=== PATIENT | female | born 2000 | race Caucasian/White ===

== ENCOUNTER 2023-02-09 13:58 | Emergency (ER) | payer OTHER, SELFPAY ==
[2023-02-09 14:05] VITALS: BP 190/101; PULSE 98; RESP 20; TEMP 35.6; O2SAT 94
--- NOTE | 2023-02-09 14:12 | ED.URI ---
HPI - URI/Sore Throat General Chief Complaint: Upper Respiratory Infection Stated Complaint: cough/chest rattling Source: patient, RN notes reviewed and old records reviewed Mode of arrival: ambulatory Limitations: no limitations History of Present Illness HPI Narrative: 22-year-old female presents to [facility] with complaints of coughing congestion for 2 weeks. Patient taking oqau-dmp-qdqhtss medications with no relief. Patient denies dizziness, chest pain, weakness, shortness of breath. MD elicited complaint: cough and nasal congestion Onset (ago): week(s) ( 2) Related Data Allergies Allergy/AdvReac Type Severity Reaction Status Date / Time No Known Allergies Allergy Verified 02/09/23 14:16 Review of Systems Review of Systems: All systems reviewed & are unremarkable except as noted in HPI and below Constitutional: Constitutional: Reports no additional constitutional complaints Eyes: Eyes: Reports no additional eye complaints ENT: Reports as per HPI, Reports nasal congestion and Reports nasal discharge Cardiovascular: Cardiovascular: Reports no additional cardiovascular complaints Respiratory: Respiratory: Reports as per HPI, Reports chest congestion, Reports cough and Reports pain with cough Neurologic: Reports system reviewed and no additional complaints, except as documented PMFSH Comments At the time of my signature, I reviewed and agree with the nursing past medical, surgical, social, and family history. There is no relevant family history pertinent to the patient complaint. Exam Const: General: cooperative, healthy appearing, no acute distress and well nourished Nutritional Appearance: well nourished Orientation/consciousness: patient oriented x3 Limitations: no limitations HENMT: Head: normal to inspection and normocephalic Ears: external ears normal, TM's normal bilaterally, mastoids normal and Abnormal EAC present Face/Nose/Sinus: normal facial exam Face and sinus: normal facial exam Mouth: Yes Normal oral and palatal mucosa present, Yes oropharynx normal and Yes moist mucous membranes Throat: posterior oropharynx normal, tonsils normal, uvula midline and no uvular edema Eyes: General: appearance normal, both eyes and all related structures Sclera: sclerae normal Pupils: Equal, round and reactive pupils present Resp: Effort & Inspection: normal respiratory effort, able to speak in complete sentences, no audible wheezes, Actively coughing, no respiratory distress and no retractions Auscultation: clear to auscultation bilaterally, no crackles, no rales, no rhonchi and no wheezes Cardio: Rate: regular rate Rhythm: regular rhythm Skin: General skin exam: normal color and no rashes or lesions noted Neuro: General: patient oriented x3 Cranial nerves: Yes Equal, round and reactive pupils present Psych: Appearance: grossly normal Course Course Emergency Course: Some parts of this dictation were generated by voice recognition software and may contain typographical and/or grammatical inaccuracies. Level of Care: Express Care Visit Vital Signs Vital signs: Vital Signs Temperature 96.0 F L 02/09/23 14:05 Pulse Rate 98 02/09/23 14:05 Respiratory Rate 20 02/09/23 14:05 Blood Pressure 190/101 H 02/09/23 14:05 Pulse Oximetry 94 02/09/23 14:05 Oxygen Delivery Room Air 02/09/23 14:05 Temperature 96.0 F L 02/09/23 14:05 Pulse Rate 98 02/09/23 14:05 Respiratory Rate 20 02/09/23 14:05 Blood Pressure 190/101 H 02/09/23 14:05 Pulse Oximetry 94 02/09/23 14:05 Oxygen Delivery Room Air 02/09/23 14:05 Reviewed MDM - URI/Sore Throat MDM Narrative Medical decision making narrative: patient with cough and congestion for 2 weeks, patient taking fvsv-ovj-nhgowur medications with no relief. Will treat patient for bacterial bronchitis. The patient's manual blood pressure was 168/92. Discussed with patient importance of monitoring her blood pressure and obtainin
== END 2023-02-09 14:35 | disposition home or self-care (01) ==
PROVIDERS: Emergency Provider Registered Nurse
DX: J20.9 Acute bronchitis, unspecified (principal)
CPT/HCPCS: 99203; G0463

== ENCOUNTER 2024-05-01 13:52 | Emergency (ER) | payer OTHER, SELFPAY ==
--- OUTSIDE RECORDS SUMMARY | 2024-05-01 13:55 | XMS_ITS | Clinical Summary ---
Author Organization [facility] Address [address] [place] [address] Care Team Providers Care Barrel Polisher Inside Name Role Phone Cheyenne Middleton MD Primary Care Provider Source Comments [facility] [employer],non-owned Affiliates and Associated Physician Practices is amultiple site organization consisting of ambulatory clinics and hospital sitesin [place], [place], [place] and [place]. This disclosure is being madepursuant to the Care Everywhere program and may not contain all information available regarding this patient. Last updated 17.[facility] [employer] Allergies No known active allergies Medications * Be aware that medications may not be up to date on this document. Alwaysverify current medications with the patient. Medication Sig Dispensed Refills Start Date End Date Status Vitamin D, Cholecalciferol, 1000 UNITS CAPS Take 2,000 Units by mouth Active fish oil/omega-3 fatty acids (PROMEGA;CARDI-OMEGA 3) 1000 MG capsule Take 1,000 mg by mouth once Active sulfamethoxazole-trime thoprim (BACTRIM DS; SEPTRA DS) 800-160 MG tablet Take 1 tablet by mouth 2 times daily Active Active Problems Problem Noted Date Diagnosed Date Obesity 09/18/2010 Asthma 10/17/2009 Allergic rhinitis 10/17/2009 Family History Relation Name Status Comments Father Alive Mother Alive Social History Tobacco Use Types Packs/Day Years Used Date Smoking Tobacco: Never Sex and Gender Information Value Date Recorded Sex Assigned at Not on file Gender Identity Not on file Sexual Orientation Not on file Last Filed Vital Signs Vital Sign Reading Time Taken Comments Blood Pressure 138/72 08/06/2011 11:25 AM CDT Pulse 107 08/06/2011 11:25 AM CDT Temperature 36.8 C (98.3 F) 08/06/2011 11:25 AM CDT Respiratory Rate 20 08/06/2011 11:2 5 AM CDT Oxygen Saturation 98% 08/06/2011 11: 25 AM CDT Inhaled Oxygen Concentration - - Weight 138.9 kg (306 lb 3.5 oz) 018 11:22 AM CDT Height 148.5 cm (4' 10.47 ) 08/06/2011 7:50 AM C DT Body Mass Index - - Plan of Treatment Health Maintenance Due Date Last Done Comments PAP SMEAR 2001 HIV SCREENING 2016 HPV VACCINE (1 - 3-dose series) 2016 CHLAMYDIA/GONORRHEA SCREENING 2017 MENINGOCOCCAL (Group B) VACCINE (1 of 2 - Standard) 2017 HEPATITIS C SCREENING 07/11/2019 DTAP/TDAP/TD VACCINES (1 - Tdap) 2020 HEPATITIS B VACCINE (1 of 3 - 19+ 3-dose series) 2020 PNEUMOCOCCAL VACCINE (1 of 2 - PCV) 2020 COVID-19 VACCINE (1 - 2023-2 5 season) 2023 INFLUENZA VACCINE (#1) 2023 5, 01/02/2014, 12/27/2012 DEPRESSION SCREENING 03/09/2024 ZOSTER VACCINE (1 of 2) 07/16/2051 HIB VACCINE Aged Out No longer eligi ble based on patient's age to complete this topic MENINGOCOCCAL VACCINE Aged Out No graeme kel eligible based on patient's age to complete this topic Care Teams Barrel Polisher Inside Relationship Specialty Start Date End Date Cheyenne Middleton MD [address] [place] [id number] PCP - General 09/20/10
--- OUTSIDE RECORDS SUMMARY | 2024-05-01 13:55 | XMS_ITS | Referral Summary ---
Author Organization [facility] Address [address] [place] [address] Care Team Providers Care Therapist Radiation Name Role Phone Cheyenne Middleton MD Primary Care Provider [phone] Source Comments [facility] [employer],non-owned Affiliates and Associated Physician Practices is amultiple site organization consisting of ambulatory clinics and hospital sitesin [place], [place], [place] and [place]. This disclosure is being madepursuant to the Care Everywhere program and may not contain all information available regarding this patient. Last updated 17.[facility] [employer] Allergies No known active allergies Medications * [...] Obesity 09/18/2010 Asthma 10/17/2009 Allergic rhinitis 10/17/2009 Social History Tobacco Use Types Packs/Day Years [...] Mass Index - - Plan of Treatment Not on file Care Teams Therapist Radiation Relationship Specialty Start Date End Date Cheyenne Middleton MD [address] [place] [id number] PCP - General 09/20/10
--- OUTSIDE RECORDS SUMMARY | 2024-05-01 13:55 | XMS_ITS | Patient Health Summary ---
Author Organization [facility] Address [address] [place] [address] Care Team Providers Care Chronometer Assembler And Adjuster Name Role Phone Cheyenne Middleton MD Primary Care Provider Note from [facility],non-owned Affiliates and Associated Physician Practices is amultiple site organization consisting of ambulatory clinics and hospital sitesin [place], [place], [place] and [place]. This disclosure is being madepursuant to the Care Everywhere program and may not contain all information available regarding this patient. Last updated 17.[facility] [employer] Allergies No known active allergies Medications * Be aware that medications may not be up to date on this document. Alwaysverify current medications with the patient. * Vitamin D, Cholecalciferol, 1000 UNITS CAPS Take 2,000 Units by mouth * fish oil/omega-3 fatty acids (PROMEGA;CARDI-OMEGA 3) 1000 MG capsule Take 1,000 mg by mouth once * sulfamethoxazole-trimethoprim (BACTRIM DS; SEPTRA DS) 800-160 MG tablet Take 1 tablet by mouth 2 times daily Active Problems Problem Noted Date Diagnosed Date [...] cm (4' 10.47 ) 08/06/2011 7:50 AM CDT Body Mass Index - - Procedures * PATHOLOGY/CYTOLOGY REPORT ORDER(Performed 08/07/2011) * CYTOLOGY LIPID INDEX (CG ONLY)(Performed 08/06/2011) * CULTURE FUNGUS OTHER(Performed 08/06/2011) * CULTURE BRONCHOALVEOLAR LAVAGE+GRAM STAIN(Performed 08/06/2011) * CULTURE FUNGUS OTHER(Performed 08/06/2011) * CULTURE AFB+SMEAR(Performed 08/06/2011) * IMAGING/RADIOLOGY/XRAY RESULTS ORDER(Performed 07/10/2011) Results * PATHOLOGY/CYTOLOGY REPORT ORDER (08/07/2011 6:56 PM CDT) Narrative Transcriptions Document, Scanned - 08/07/2011 6:56 PM CDT Scanned Document LAB - PATHOLOGY/CYTO LOGY ORDERABLES * CULTURE AFB+SMEAR (08/06/2011 11:00 AM CDT) Result [facility] Comment: Final ACID FAST SMEAR No acid fast bacilli seen. No growth of Acid Fast Bacillus Miscellaneous samples (specimen) BRONCHIAL BRUSHINGS SPECIMEN / Unknown 08/06/2011 11:00 AM CDT 08/06/2011 11:17 AM CDT Narrative [facility] - 09/16/2011 1:34 PM CDT Performed By [facility];[address];[place] [address] Mary Jo Gee MD LAB - MICROBIOLOGY ORDERABLES [facility] [address] [place] [address] * CYTOLOGY LIPID INDEX PANEL (08/06/2011 11:00 AM CDT) [facility] Clinical History [facility] Comment: Source BAL - Right upper lobe Clinical Information: 11 year-old girl with chronic cough for 2 weeks. Pre-op Diagnosis: Chronic cough Post-op Diagnosis: Surgical Procedure: Bronchoscopy Microscopic Examination [facility] Comment: Differential count: alveolar macrophages 83%, neutrophils 2%, lymphocytes 15%, eosinophils 2%. 1 Farooq-Giemsa, 1 H+E, 3 Oil Red O . Cytospin preparations show a population of cells consisting of abundant alveolar macrophages and bronchial epithelial cells. Evaluation of Oil Red O stained cytospins demonstrate presence of lipid-containing macrophages with a lipid index of 18/400. (SH) Diagnosis [facility] Comment: DIAGNOSIS A. LUNG, BRONCHIOALVEOLAR LAVAGE: - ABUNDANT MACROPHAGES AND BRONCHIAL EPITHELIAL CELLS. - LIPID INDEX FOR BRONCHIOALVEOLAR LAVAGE = 18/400. Comment I have reviewed all diagnostic slides and have personally prepared the gross and/or microscopic portion of this report as part of my pathologic assessment and the final diagnosis. Enhanced Environmental Operator JACK COULTER, [facility] Pathologist Jack Coulter M.D.,Ph.D. [facility] Electronically Signed By JACK COULTRE, [facility] BRONCHIOLOALVEOLAR LAVAGE / Unknown 08/06/2011 11:00 AM CDT 08/06/2011 11:43 AM CDT Mary Jo Gee MD LAB - BODY FLUID OR DERABLES Performing Organization Address City/State/[facility] Co de Phone Number [facility] [address] [place] [address] * CULTURE FUNGUS OTHER (08/06/2011 11:00 AM CDT) Only the most recent of2 resultswithin the time period is included. Result [facility] Comment: Final FUNGUS SMEAR No yeast or hyphae seen No Pneumocystis jirovecii seen No growth of fungus Miscellaneous samples (specimen) BRONCHIOLOALVEOLAR LAVAGE / Unknown 08/06/2011 11:00 AM CDT 08/06/2011 11:16 AM CDT Narrative [facility] - 09/01/2011 2:11 PM CDT Performed By [facility];[address] [place] [address];[place] [address] Mary Jo Gee MD LAB - MICROBIOLOGY ORDERABLES Performing Organization Address [facility] Co de Phone Number [facility] [address] [place] [address] * CULTURE BRONCHOALVEOLAR LAVAGE+GRAM STAIN (08/06/2011 11:00 AM CDT) Result [facility] Comment: Final GRAM STAIN Rare WBC's No organisms seen. CULTURE <1000 CFU/ml Normal oropharyngeal tripp present Fluid specimen (specimen) BRONCHIOLOALVEOLAR LAVAGE / Unknown 08/06/2011 11:00 AM CDT 08/06/2011 11:16 AM CDT Narrative [facility] - 08/08/2011 9:42 AM CDT Performed By [facility];[address] [place] [address];[place] [address] Mary Jo Gee MD LAB - MICROBIOLOGY ORDERABLES Performing Organization Address [facility] Co de Phone Number [facility] [address] [place] [address] * IMAGING/RADIOLOGY/XRAY RESULTS ORDER (07/10/2011 6:53 AM CDT) Anatomical Region Laterality Modality Other Narrative Transcriptions Document, Scanned - 07/10/2011 6:53 AM CDT Scanned Document IMAGING Care Teams Chronometer Assembler And Adjuster Relationship Specialty Start Date End Date Cheyenne Middleton MD [address] [place] [phone] PCP - General 09/20/10
--- OUTSIDE RECORDS SUMMARY | 2024-05-01 13:55 | XMS_ITS | Data Portability ---
[facility] Organization [facility] Address [address] [facility] [place] [place] [address] Care Team Providers Care X Ray Operator Name Role Phone AMEZQUITA, YUMI Primary Care Provider Assessment No assessment recorded. Plan of Treatment Reminders Order Date Submit Date Provider Last Modified By Organization Details Last Modified Time Details Appointments None recorded. Lab Mycobacteri um tuberculosi s stimulated gamma interferon, qual, blood 2023 024 [facility], [address] [facility] [address], [place], [address], 4 20:07:49 HbA1c (hemoglobin A1c), blood 2023 024 AKIN [facility], [address] [facility], [facility] [address], [place], [address], 4 16:11:51 vitamin D, 25-hydroxy, total, serum 2023 024 AKIN [facility], [address] [facility] [address], [place], [address], 4 16:11:52 TSH, ultra-sensi tive, serum 2023 024 AKIN [facility], [address], [place], [address], 4 16:11:50 CMP, serum or plasma 2023 024 AKIN [facility], [address], [place], [address], 03:09:53 lipid panel, serum 2023 [facility], [address], [place], [address], 03:09:51 CBC 2023 [facility], [address], [place], [address], 03:09:54 Referral None recorded. Procedures None recorded. Surgeries None recorded. Imaging None recorded. Medication Orders None recorded. Patient TargetsNo targets recorded. Patient Instructions Encounter Date Encounter Id Patient Instructions Last Modified By Organization Details Last Modified Time 02/22/2024 [id number] influenza (flu) vaccine: care instructions Not available 02/22/2024 10:26:58 tetanus and diphtheria booster: care instructions Not available 02/22/2024 10:26:58 learning about tuberculosis (TB) Not available 02/22/2024 10:26:58 A healthy lifestyle: care instructions Not available 02/22/2024 10:26:58 Increase intake of fresh fruits, and vegetables. Avoid packaged foods and fast foods. Follow a low salt diet, drink at least 8-10 8oz glasses of water a day, exercise most days of the week. Take all medications as prescribed. Keep appointments with PCP and all specialists. Not available 02/22/2024 10:29:22 follow up as needed, yearly to keep established with provider Not available 02/22/2024 10:29:59 Reason for Referral None Reported. Results Created Date Observation Date Name Description Value Unit Range Abnormal Flag Note LastModifiedBy Organization Detail LastModifiedTime 02/22/2002/22/2024 LIPID PANEL cholesterol, total 177 mg/dL 100-19 9 Not Available [facility] [address], [place], [address], 02/23/2024 03:09:51 02/22/20 24 02/22/2024 LIPID PANEL triglyceride s 199 mg/dL 0-149 above high normal Not Available [facility] [address] [place], [address], 02/23/2024 03:09:51 02/22/20 24 02/22/2024 LIPID PANEL HDL cholesterol 43 mg/dL 40-999 Not Available [facility] [address] [place], [address], 02/23/2024 03:09:51 02/22/20 24 02/22/2024 LIPID PANEL VLDL cholesterol aneta 40 mg/dL 5-[address] [facility] [address] [place] [address], [address], 02/23/2024 03:09:51 02/22/20 24 02/22/2024 LIPID PANEL LDL chol calc ([facility]) 123 mg/dL 0-99 above high normal Not Available [facility] [address] [place] [address], [address], 02/23/2024 03:09:51 02/22/20 24 02/22/2024 COMP. METAB OLIC PANEL (14) glucose 106 mg/dL 70-99 above high normal Not Available [facility] [address] [place] [address], [address], 02/23/2024 03:09:53 02/22/20 24 02/22/2024 COMP. METAB OLIC PANEL (14) BUN 10 mg/dL 6-20 Not Available [facility] [address] [place] [address], [address], 02/23/2024 03:09:53 02/22/20 24 02/22/2024 COMP. METAB OLIC PANEL (14) creatinine 0.72 mg/dL 0.76-1 .27 below low normal Not Available [facility] [address] [place] [address], [address], 02/23/2024 03:09:53 02/22/20 24 02/22/2024 COMP. METAB OLIC PANEL (14) eGFR 121 >=60 Units for eGFR value s are mL/mi n/1.7 3 The eGFR Calcu latio n has not been valid ated for patie nts under the age of 18. If test resul ts are displ ayed for a patie nt under the age of 18, disre fara that value . Not Available [facility] [address] [place] [address], [address], 02/23/2024 03:09:53 02/22/20 24 02/22/2024 COMP. METAB OLIC PANEL (14) BUN/creatini ne ratio 14 9-[address] [facility] [address] [place] [address], [address], 02/23/2024 03:09:53 02/22/20 24 02/22/2024 COMP. METAB OLIC PANEL (14) sodium 139 mmol/ L 134-14 4 Not Available [facility] [address] [place] [address], [address], 02/23/2024 03:09:53 02/22/20 24 02/22/2024 COMP. METAB OLIC PANEL (14) potassium 4.4 mmol/ L 3.5-5. 2 Not Available [facility] [address] [place] [address], [address], 02/23/2024 03:09:53 02/22/20 24 02/22/2024 COMP. METAB OLIC PANEL (14) chloride 100 mmol/ L 96-106 Not Available [facility] [address] [place] [address], [address], 02/23/2024 03:09:53 02/22/20 24 02/22/2024 COMP. METAB OLIC PANEL (14) carbon dioxide, total 28 mmol/ L 20-29 Not Available [facility] [address] [place] [address], [address], 02/23/2024 03:09:53 02/22/20 24 02/22/2024 COMP. METAB OLIC PANEL (14) calcium 9.4 mg/dL 8.7-10 .2 Not Available [facility] [address] [place], [address], 02/23/2024 03:09:53 02/22/20 24 02/22/2024 COMP. METAB OLIC PANEL (14) protein, total 7.7 g/dL 6.0-8. 5 Not Available [facility] [address] [place], [address], 02/23/2024 03:09:53 02/22/20 24 02/22/2024 COMP. METAB OLIC PANEL (14) albumin 4.5 g/dL 4.0-5. 0 Not Available [facility] [address] [place], [address], 02/23/2024 03:09:53 02/22/20 24 02/22/2024 COMP. METAB OLIC PANEL (14) globulin, total 3.2 g/dL 1.5-4. 5 Not Available [facility] [address] [place], [address], 02/23/2024 03:09:53 02/22/20 24 02/22/2024 COMP. METAB OLIC PANEL (14) A/G ratio 1.0 1.2-2. 2 below low normal Not Available [facility] [address] [place], [address], 02/23/2024 03:09:53 02/22/20 24 02/22/2024 COMP. METAB OLIC PANEL (14) bilirubin, total 0.3 mg/dL 0.0-1. 2 Not Available [facility] [address] [place], [address], 02/23/2024 03:09:53 02/22/20 24 02/22/2024 COMP. METAB OLIC PANEL (14) alkaline phosphatase 73 IU/L 44-121 Not Available [facility] [address] [place], [address], 02/23/2024 03:09:53 02/22/20 24 02/22/2024 COMP. METAB OLIC PANEL (14) AST (SGOT) 20 IU/L 0-40 Not Available [facility] [address] [place], [address], 02/23/2024 03:09:53 02/22/20 24 02/22/2024 COMP. METAB OLIC PANEL (14) ALT (SGPT) 36 IU/L 0-32 above high normal Not Available [facility] [address] [place], [address], 02/23/2024 03:09:53 02/22/20 24 02/22/2024 CBC, PLATE LET, NO DIFFE RENTI AL WBC 6.6 x10e3 /uL 3.4-10 .8 Not Available [facility] [address] [place], [address], 02/23/2024 03:09:54 02/22/20 24 02/22/2024 CBC, PLATE LET, NO DIFFE RENTI AL RBC 5.32 x10e6 /uL 3.77-5 .28 above high normal Not Available [facility] [address] [place], [address], 02/23/2024 03:09:54 02/22/20 24 02/22/2024 CBC, PLATE LET, NO DIFFE RENTI AL hemoglobin 13.8 g/dL 11.1-1 5.9 Not Available [facility] [address] [place], [address], 02/23/2024 03:09:54 02/22/20 24 02/22/2024 CBC, PLATE LET, NO DIFFE RENTI AL hematocrit 45.7 % 34.0-4 6.6 Not Available [facility] [address] [place], [address], 02/23/2024 03:09:54 02/22/20 24 02/22/2024 CBC, PLATE LET, NO DIFFE RENTI AL MCV 86 fL 79-97 Not Available [facility] [address] [place], [address], 02/23/2024 03:09:54 02/22/20 24 02/22/2024 CBC, PLATE LET, NO DIFFE RENTI AL MCH 25.9 pg 26.6-3 3.0 below low normal Not Available [facility] [address] [place], [address], 02/23/2024 03:09:54 02/22/2002/22/2024 CBC, PLATE LET, NO DIFFE RENTI AL MCHC 30.2 g/dL 31.5-3 5.7 below low normal Not Available [facility] [address] [place], [address], 02/23/2024 03:09:54 02/22/20 24 02/22/2024 CBC, PLATE LET, NO DIFFE RENTI AL RDW 13.3 % 11.5-1 4.5 Not Available [facility] [address] [place], [address], 02/23/2024 03:09:54 02/22/20 24 02/22/2024 CBC, PLATE LET, NO DIFFE RENTI AL platelets 314 x10e3 /uL 150-45 0 Mean Plate let Volum e 10.8 fL 8.9-1 2.7 N Not Available [facility] [address] [place], [address], 02/23/2024 03:09:54 02/22/20 24 02/22/2024 CBC, PLATE LET, NO DIFFE RENTI AL NRBC 0 % 0-0 Not Available [facility] [address] [place], [address], 02/23/2024 03:09:54 02/22/20 24 02/23/2024 TSH RFX ON ABNOR MAL TO FREE T4 TSH 3.240 uIU/m L 0.450- 4.500 Not Available [facility] ([facility]) [address] [facility], [place], [address], 02/23/2024 16:11:50 02/22/20 24 02/23/2024 HEMOG LOBIN A1C hemoglobin A1C 5.8 % 4.8-5. 6 above high normal Predi abete s: 5.7 - 6.4 Diabe yamil: >6.4 Glyce artis contr ol for adult s with diabe yamil: <7.0 Not Available [facility] ([facility]) [address] [facility], [place], [address], 02/23/2024 16:11:51 02/22/20 24 02/23/2024 VITAM IN D, 25-HY DROXY vitamin D, 25-hydroxy 13.4 NG/mL 30.0-1 00.0 below low normal Vitam in D defic iency has been defin ed by the Insti tute of Medic ine and an Endoc rine Socie ty pract ice guide line as a level of serum 25-OH vitam in D less than 20 ng/mL (1,2) . The Endoc rine Socie ty went on to furth er defin e vitam in D insuf ficie ncy as a level betwe en 21 and 29 ng/mL (2). 1. IOM (Inst itute of Medic ine). 2009. Dieta ry refer ence mona es for calci um and D. Belinda owens [place]: The Natio nal [employer] [facility] Press . 2. Deedee raymundo MF, Ion chery [place], Kavitha off-F errar i DAMON, et al. Evalu ation , treat ment, and preve ntion of vitam in D defic iency : an Endoc rine Socie ty clini aneta pract ice guide line. JCEM. 2010; 96(7) :1911 -30. Not Available [facility] ([facility]) [address] [facility], [place], [address], 02/23/2024 16:11:52 02/26/20 24 02/27/2024 QUANT IFERO N-TB GOLD PLUS quantiferon incubation INCUBA TION PERFOR MED. Not Available [facility] ([facility]) [address] [facility], [place], [address], 03/01/2024 20:07:49 02/26/20 24 02/27/2024 QUANT IFERO N-TB GOLD PLUS quantiferon criteria COMMEN T Quant iFERO N-TB Gold Plus is a quali tativ e indir ect test for M tuber culos is infec tion (incl uding disea se) and is inten ded for use in conju nctio n with risk asses sment , radio graph y, and other medic al and diagn ostic evalu ation s. The Quant iFERO N-TB Gold Plus resul t is deter mined by subtr actin g the Nil value from eithe r TB antig en (Ag) value . The Mitog en tube serve s as a contr ol for the test. Not Available [facility] ([facility]) [address] [facility], [place], [address], 03/01/2024 20:07:49 02/26/20 24 03/01/2024 QUANT IFERO N-TB GOLD PLUS quantiferon- TB gold plus NEGATI VE negati ve No respo nse to M tuber culos is antig ens detec eri. Infec tion with M tuber culos is is unlik lilly, but high risk indiv idual s shoul d be consi dered for addit ional testi ng (ATS/ IDSA/ CDC Clini aneta Pract ice Guide lines , 2017) . The refer ence range is an Antig en minus Nil resul t of <0.35 IU/mL . Chemi lumin escen ce immun oassa y metho dolog y Not Available [facility] ([facility]) [address] [facility], [place], [address], 03/01/2024 20:07:49 02/26/20 24 03/01/2024 QUANT IFERO N-TB GOLD PLUS quantiferon TB1 Ag value 0.01 IU/mL Not Available [facility] ([facility]) [address] [place], [address], 03/01/2024 20:07:49 02/26/20 24 03/01/2024 QUANT IFERO N-TB GOLD PLUS quantiferon TB2 Ag value 0.04 IU/mL Not Available [facility] ([facility]) [address] [place], [address], 03/01/2024 20:07:49 02/26/20 24 03/01/2024 QUANT IFERO N-TB GOLD PLUS quantiferon nil value 0.02 IU/mL Not Available [facility] ([facility]) [address] [place], [address], 03/01/2024 20:07:49 02/26/20 24 03/01/2024 QUANT IFERO N-TB GOLD PLUS quantiferon mitogen value >10.00 IU/mL Not Available [facility] ([facility]) [address] [place], [address], 03/01/2024 20:07:49 Result Notes None recorded. Problems Name Problem SNOMED Code Status Onset Date Resolution Date Notes Provider Name and Address Organization Details Recorded Time Morbid obesity [id number] Active 024 Yumi Amezquita APN, [employer] Attn: Accounting ,[address] [place], [address] , [facility] 10:19:44 Problem Notes None recorded. Procedures Surgical History Date Name Laterality Status Provider Name and Address Organization Details Recorded Time 3 bronchoscopy completed LAZARO Vences [place] - [facility] 02/22/2024 10:08:47 Imaging Results None recorded. Procedure Notes None recorded. Medical Equipment None Reported. Allergies Allergen ID Allergen Name Allergen Category Reaction Reaction Severity Criticality Documentation Date Start Date Code Code System Note Provider Name and Address Organization Details Recorded Time 632309 amoxicill in medicatio n hives Not available Not available 02/22/2024 723 RxNorm Not Available Not Available Not Available Medications Name Sig Start Date Stop Date Status Note LastModified by Organization Details LastModified Time ergocalciferol (vitamin D2) 1,250 mcg (50,000 unit) capsule Take 1 capsule every week by oral route. active Not Available Not Available No t Available Vitals Date Recorded Body height Body mass index (BMI) Body weight Oxygen saturation Oxygen saturation in Arterial blood by Pulse oximetry Respiratory rate Body temperature Heart rate Systolic blood pressure Diastolic blood pressure Provider Name and Address Organization Details Last Updated DateTime 4 167.64 cm 60.7 kg/m2 354109. 73 g 98 % 98 % 16 /min 98.4 [degF] 88 /min 140 mm[Hg] 94 mm[Hg] LAZARO Vences [facility] 10:13:10 Social History Question Answer Notes LastModified by Organizat ion Details LastModified Time Tobacco Smoking Status Never Smoker LAZARO Vences null, [place] [facility] [place] 02/22/2024 10:07:04 What Is Your Level Of Alcohol Consumption? Occasional Information not available 02/22/2024 Are You Blind Or Do You Have Difficulty Seeing? No Glasses Information not available 02/22/2024 What Is Your Level Of Caffeine Consumption? Moderate Tea Information not available 02/22/2024 In The 14 Days Before Symptom Onset, Have You Had Close Contact With A Laboratory-confir med COVID-19 While That Case Was Ill? No Information not available 02/22/2024 In The 14 Days Before Symptom Onset, Have You Had Close Contact With A Person Who Is Under Investigation For COVID-19 While That Person Was Ill? No Information not available 02/22/2024 Have You Been To An Area Known To Be High Risk For COVID-19? No Information not available 02/22/2024 Are You Currently Employed? Yes Information not available 02/22/2024 Are You Deaf Or Do You Have Serious Difficulty Hearing? No Information not available 02/22/2024 What Type Of Diet Are You Following? REGULAR Information not available 02/22/2024 What Is Your Occupation? [employer] Information not available 02/22/2024 Are There Any Guns Present In Your Home? No Information not available 02/22/2024 What Was The Date Of Your Most Recent Tobacco Screening? 02/22/2024 Information not available 02/22/2024 How Many Children Do You Have? 0 Information not available 02/22/2024 What Is Your Relationship Status? Single Information not available 02/22/2024 Do You Use Your Seat Belt Or Car Seat Routinely? Yes Information not available 02/22/2024 Do You Have Smoke And Carbon Monoxide Detectors In Your Home? Yes Information not available 02/22/2024 Are You Passively Exposed To Smoke? No Information no t available 02/22/2024 Do You Feel Stressed (tense, Restless, Nervous, Or Anxious, Or Unable To Sleep At Night)? [id number] Information not available 02/22/2024 Do You Use Any Illicit Or Recreational Drugs? No Information not available 02/22/2024 Do You Use Sunscreen Routinely? Yes Information not available 02/22/2024 Has Tobacco Cessation Counseling Been Provided? Yes Information not available 02/22/2024 On What Date Was Tobacco Cessation Counseling Provided? 02/22/2024 Information not available 02/22/2024 Do You Or Have You Ever Used Any Other Forms Of Tobacco Or Nicotine? No Information not available 02/22/2024 Sex: Female Functional Status Question Answer Note LastModified by Organizat ion Details LastModified Time Are you able to care for yourself? Yes Information not available 02/22/2024 What is your exercise level? Occasional Information not available 02/22/2024 Mental Status None recorded. Family History Relationship Description Onset Age of this Age Resolved Age Notes LastModified by Organization Details LastModified Time Father Diabetes mellitus [email or web address] Not available 02/06 10:05:50 Father Disorder of thyroid gland jschulterma Not available 02/06 10:06:03 Father Hypertensive disorder jschulterma Not available 02/06 10:06:24 Mother Diabetes mellitus jschulterma Not available 02/06 10:05:50 Mother Disorder of thyroid gland jschulterma Not available 02/06 10:06:03 Mother Hypertensive disorder jschulterma Not available 02/06 10:06:24 Maternal Grandfather Diabetes mellitus jschulterma Not available 02/06 10:05:50 Maternal Grandmother Diabetes mellitus jschulterma Not available 02/06 10:05:50 Paternal Grandfather Diabetes mellitus jschulterma Not available 02/06 10:05:50 Paternal Grandmother Diabetes mellitus jschulterma Not available 02/06 10:05:50 Paternal Grandmother Chronic obstructive pulmonary disease jschulterma Not available 02/06 10:06:13 Medical History Condition Response Coronary Artery Disease N Atrial Fibrillation N High Blood Pressure N Thyroid Problems N Kidney or Bladder Problems N GI Problems N Depression N COPD N Blood Clots N Have you had a mammogram in the last yea r? N Eating Disorder N Skin Problems N Anemia N Heart Attack (ME) N Anxiety Disorder N Diabetes N Muscle, Joint, or Bone Problems N Arthritis N Seizures/Epilepsy N Have you had a colonoscopy in the last 1 0 years? N Acid Reflux (GERD) N Cancer N Stroke N Asthma Y Allergies N Have you had a PSA blood test in the las t year? N Substance Abuse N High Cholesterol N Hepatitis N Liver Disease N Schizophrenia N Headaches N Heart Failure N Osteoporosis N Gynecological History Statement/Question Response Flow Moderate Date of LMP 01/08/2024 Menses Monthly N Age at Menarche 12 Current Control Method None LMP Approximate Obstetrics History GPAL:G 0 P 0 0 0 0 Immunizations Vaccine Type Date Status Note Provider Nam e and Address Organization Details Recorded Time Hib, unspecified formulation 4 completed Yumi Amezquita APN, FNP-C Attn: Accounting,[address] [place], [address], [facility] 02/22/2024 10:15:24 Hib, unspecified formulation 7 completed Yumi Amezquita, [employer] OPER[employer], [employer] Attn: Accounting,[address] [facility], [place], [place], [address] [place] [address], [place] [facility] 02/22/2024 10:15:24 Hib-Hep B 2 completed Yumi Amezquita, WASTE MACHINE OPERATOR, [employer] Attn: Accounting,[address] [facility], [place], [place], [address] [place] [address], [facility] 02/22/2024 10:15:24 Hib-Hep B 3 completed Yumi Amezquita, WASTE MACHINE OPERATOR, [employer] Attn: Accounting,[address] [facility], [place], [place], [address] [place] [address], [facility] 02/22/2024 10:15:24 Hib-Hep B 2 completed Yumi Amezquita, WASTE MACHINE OPERATOR, [employer] Attn: Accounting,[address] [facility], [place], [place], [address] [place] [address], [facility] 02/22/2024 10:15:24 IPV 6 completed Yumi Amezquita, WASTE MACHINE OPERATOR, [employer] Attn: Accounting,[address] [facility], [place], [place], [address] [place] [address], [facility] 02/22/2024 10:15:24 IPV 2 completed Yumi Amezquita, WASTE MACHINE OPERATOR, [employer] Attn: Accounting,[address] [facility], [place], [place], [address] [place] [address], [facility] 02/22/2024 10:15:24 IPV 3 completed Yumi Amezquita, WASTE MACHINE OPERATOR, [employer] Attn: Accounting,[address] [facility], [place], [place], [address] [place] [address], [facility] 02/22/2024 10:15:24 IPV 2 completed Yumi Amezquita, WASTE MACHINE OPERATOR, [employer] Attn: Accounting,[address] [facility], [place], [place], [address] [place] [address], [facility] 02/22/2024 10:15:24 MMR 3 completed Yumi Amezquita, WASTE MACHINE OPERATOR, [employer] Attn: Accounting,[address] [facility], [place], [address] [place] [address], [place] [facility] 02/22/2024 10:15:24 MMR 6 completed Yumi Amezquita, WASTE MACHINE OPERATOR, [employer] Attn: Accounting,[address] [facility], [place], [address] [place] [address], [place] [facility] 02/22/2024 10:15:24 COVID-19, mRNA, LNP-S, PF, 30 mcg/0.3 mL dose 1 completed Yumi Amezquita, WASTE MACHINE OPERATOR, [employer] Attn: Accounting,[address] [facility], [place], [place], [address] [place] [address], [place] [facility] 02/22/2024 10:15:24 COVID-19, mRNA, LNP-S, PF, 30 mcg/0.3 mL dose 1 completed Yumi Maezquita, WASTE MACHINE OPERATOR, [employer] Attn: Accounting,[address] [facility], [place], [place], [address] [place] [address], [place] [facility] 02/22/2024 10:15:24 pneumococcal conjugate PCV 7 2 completed Yumi Amezquita, WASTE MACHINE OPERATOR, [employer] Attn: Accounting,[address] [facility], [place], [place], [address] [place] [address], [place] [facility] 02/22/2024 10:15:24 pneumococcal conjugate PCV 7 3 completed Yumi Amezquita, WASTE MACHINE OPERATOR, [employer] Attn: Accounting,[address] [facility], [place], [place], [address] [place] [address], [place] [facility] 02/22/2024 10:15:24 pneumococcal conjugate PCV 7 2 completed Yumi Amezquita, WASTE MACHINE OPERATOR, [employer] Attn: Accounting,[address] [facility], [place], [place], [address] [place] [address], [place] [facility] 02/22/2024 10:15:24 pneumococcal conjugate PCV 7 2 completed Yumi Amezquita, WASTE MACHINE OPERATOR, [employer] Attn: Accounting,[address] [facility], [place], [address] [place] [address], [place] [facility] 02/22/2024 10:15:24 pneumococcal polysaccharide PPV23 7 completed Yumi Bia, WASTE MACHINE OPERATOR, [employer] Attn: Accounting,[address] [facility], [place], [place], [address] [place] [address], [facility] 02/22/2024 10:15:24 influenza, unspecified formulation 7 completed Yumi Amezquita, WASTE MACHINE OPERATOR, [employer] Attn: Accounting,[address] [facility], [place], [address] [place] [address], [facility] 02/22/2024 10:15:24 influenza, unspecified formulation 8 completed Yumi Amezquita, WASTE MACHINE OPERATOR, [employer] Attn: Accounting,[address] [facility], [place], [place], [address] [place] [address], [facility] 02/22/2024 10:15:24 Tdap 3 completed Yumi Amezquita, WASTE MACHINE OPERATOR, [employer] Attn: Accounting,[address] [facility], [place], [place], [address] [place] [address], [facility] 02/22/2024 10:15:24 varicella 3 completed Yumi Amezquita, WASTE MACHINE OPERATOR, [employer] INSULATION-C Attn: Accounting,20 [address] [facility], [place], [place], [address] [place] [address], [facility] 02/22/2024 10:15:24 varicella 8 completed Yumi Amezquita, WASTE MACHINE OPERATOR, [employer] Attn: Accounting,20 [address] [facility], [place], [place], [address] [place] [address], [facility] 02/22/2024 10:15:24 Hep B, unspecified formulation 2 completed Yumi Bia, WASTE MACHINE OPERATOR, [employer] Attn: Accounting,20 [address] [facility], [place], [place], [address] [place] [address], [facility] 02/22/2024 10:15:24 Influenza, split virus, trivalent, preservative 1 completed Yumi Amezquita, WASTE MACHINE OPERATOR, [employer] Attn: Accounting,20 [address] [facility], [place], [place], [address] [place] [address], [facility] 02/22/2024 10:15:24 Influenza, split virus, trivalent, PF 2 completed Yumi Amezquita, WASTE MACHINE OPERATOR, [employer] Attn: Accounting,20 [address] [facility], [place], [place], [address] [place] [address], [facility] 02/22/2024 10:15:24 influenza, split (incl. purified surface antigen) 0 completed Yumi Amezquita, WASTE MACHINE OPERATOR, [employer] Attn: Accounting,20 [address] [facility], [place], [place], [address] [place] [address], [facility] 02/22/2024 10:15:24 influenza, split (incl. purified surface antigen) 9 completed Yumi Amezquita, WASTE MACHINE OPERATOR, [employer] Attn: Accounting,20 [address] [facility], [place], [address] [place] [address], [facility] 02/22/2024 10:15:24 Hep A, pediatric, unspecified formulation 8 completed Yumi Amezquita, WASTE MACHINE OPERATOR, [employer] Attn: Accounting,20 [address] [facility], [place], [address] [place] [address], [facility] 02/22/2024 10:15:24 meningococcal MCV4P 9 completed Yumi Amezquita, WASTE MACHINE OPERATOR, [employer] Attn: Accounting,20 [address] [facility], [place], [address] [place] [address], [facility] 02/22/2024 10:15:24 meningococcal MCV4P 3 completed Yumi Amezquita, WASTE MACHINE OPERATOR, [employer] Attn: Accounting,20 [address] [facility], [place], [address] [place] [address], [facility] 02/22/2024 10:15:24 DTaP 6 completed Yumi Amezquita, WASTE MACHINE OPERATOR, [employer] Attn: Accounting,20 [address] [facility], [place], [place], [address] [place] [address], [facility] 02/22/2024 10:15:24 DTaP 2 completed Yumi Amezquita, WASTE MACHINE OPERATOR, [employer] Attn: Accounting,20 [address] [facility] [place], [place], [address] [place] [address], [facility] 02/22/2024 10:15:24 DTaP 3 completed Yumi Amezquita, WASTE MACHINE OPERATOR, [employer] Attn: Accounting,20 [address] [facility], [place], [address] [place] [address], [facility] 02/22/2024 10:15:24 DTaP 2 completed Yumi Amezquita, WASTE MACHINE OPERATOR, [employer]C Attn: Accounting,20 [address] [facility], [place], [place], [address] [place] [address], [facility] 02/22/2024 10:15:24 DTaP 2 completed Yumi Amezquita, WASTE MACHINE OPERATOR, [employer]C Attn: Accounting,20 [address] [facility], [place], [address] [place] [address], [facility] 02/22/2024 10:15:24 Influenza, split virus, quadrivalent, PF 5 completed Yumi Amezquita, WASTE MACHINE OPERATOR, [employer]-C Attn: Accounting,20 [address] [facility], [place], [address] [place] [address], [facility] 02/22/2024 10:15:24 Influenza, split virus, quadrivalent, PF 3 completed Yumi Amezquita, WASTE MACHINE OPERATOR, [employer] Attn: Accounting,20 [address] [facility], [place], [place], [address] [place] [address], [facility] 02/22/2024 10:15:24 Influenza, split virus, quadrivalent, PF 4 completed Yumi Amezquita, WASTE MACHINE OPERATOR, [employer]-C Attn: Accounting,20 [address] [facility], [place], [place], [address] [place] [address], [facility] 02/22/2024 10:15:24 Hep A, unspecified formulation 9 completed Yumi Amezquita, WASTE MACHINE OPERATOR, [employer] INS[employer]-C Attn: Accounting,20 [address] [facility], [place], [place], [address] [place] [address], [facility] 02/22/2024 10:15:24 Influenza, split virus, trivalent, preservative 4 completed Angelica [place]AR[place], [place] - [facility] 02/22/2024 10:41:21 Tdap 4 completed LAZARO V[place], [place] [facility] 02/22/2024 10:41:22 Past Encounters Encounter ID Performer Location Encounter Start Date Encounter Closed Date Diagnosis/Indication Diagnosis SNOMED-CT Code Diagnosis ICD10 Code Diagnosis Note [id number] Yumi Amezquita APN, FNP-C [facility] [address] [place] [address] 02/22/2024 09:51:28 02/24/2024 16:36:02 Adult health examination 206799043 Z00.01 Encouraged routine PROGRAM AIDE GROUP WORK, vision, dental exams, well balanced diet. Administra tion of influenza vaccine 77570423 Z23 Tuberculos is screening 259567840 Z11.7 needed for day care worker form Morbid obesity 742298107 E66.01 weight loss advised Elevated blood-pressure reading without diagnosis of hypertension 846694623 R03.0 BP in pre-hypert ensive range, dwp risk, reducing salt and increasing exercise Administra tion of diphtheria, pertussis, and tetanus vaccine 669637913 Z23 History of asthma 796232 007 Z87.09 has not had issues since she was a child, declined rx for inhaler prn Health Concerns Section Related Observation LastModified by Organization Detai ls LastModified Time None Recorded Concern Status LastModified by Organization Details LastModified Time None Recorded Advance Directives Directive None Recorded Payers Encounter Date Sequence Insurance Name Policy Number Policy Caldwell Covered Member ID Caldwell Member ID Guarantor Name 02/22/2024 1 [facility] ON OR AFTER 09/06/20 (MEDICAID REPLACEMENT - HMO) Merlyn Cornejo [id number] Merlyn Cornejo Notes Date Note Type Note Provider Name and Address Organization Details Recorded Time 02/22/2024 text/html last dr was peds in 2019Needs work physical and tb test Yumi Amezquita APN, FNP-C Attn: Accounting [facility], [place], [address], [place] [facility] 02/22/2024 10:31:33 OBGyn Episode No OBEpisode recorded.
--- OUTSIDE RECORDS SUMMARY | 2024-05-01 13:55 | XMS_ITS | Clinical Summary ---
Author Organization [facility] Address [address] [facility], [address] [address] Phone Care Team Providers Care Peoplesoft Fscm Developer Name Role Phone Cheyenne Middleton MD Primary Care Provider [phone] Allergies No known active allergies Medications Vitamin D, Cholecalciferol, 1000 units Capsule Take 2,000 Units by mouth. Active [place] 3 1000 MG Capsule Take 1,000 mg by mouth. Active Social History Tobacco Use Types Packs/Day Years Used Date Smoking Tobacco: Never Smokeless Tobacco: Never Alcohol Use Standard Drinks/Week Comments Never 0 (1 standard drink = 0.6 oz pur e alcohol) AUDIT-C Answer Date Recorded Frequency of Alcohol Consumption Never 10/11/2018 Average Number of Drinks Not on file 019 Frequency of Binge Drinking Not on file 07/2018 Comments No Sex and Gender Information Value Date Recorded Sex Assigned at Not on file Legal Sex Female 7:29 PM CDT Gender Identity Not on file Sexual Orientation Not on file Last Filed Vital Signs Vital Sign Reading Time Taken Comments Blood Pressure 118/68 10/11/2018 9:58 AM CDT Pulse 82 10/11/2018 9:58 AM CDT Temperature 37.4 C (99.3 F) 10/11/2018 9:58 AM CDT Respiratory Rate 98 10/11/2018 9:58 AM CDT Oxygen Saturation - - Inhaled Oxygen Concentration - - Weight 141.1 kg (311 lb) 10/11/2018 9:58 AM CDT Height 167.6 cm (5' 6 ) 10/11/2018 9:58 AM CDT Body Mass Index 50.2 10/11/2018 9:58 AM CDT Plan of Treatment Health Maintenance Due Date Last Done Comments Hepatitis C Virus (HCV) Screening 2001 Human Papillomavirus (HPV) Immunization (1 - 3-dose series) 2016 Meningococcal B Immunization (1 of 2 - Standard) 2017 Pap Smear 2022 Influenza Immunization (#1) 11/08/202312/07, 01/02/2014, 12/27/2012, Additional history exists SARS-COV-2 Immunization ( season) 2023 12/02/2020, 11/11/2020 Respiratory Syncytial Virus (RSV) Immunization (Adult) (1 - 1-dose 75+ series) 2076 Hepatitis B Immunization Completed 003, 01/17/2002, 2001, Additional history exists Measles Mumps Rubella (MMR) Immunization Discontinued 08/08/2005, 07/19/2002 Polio (IPV) Immunization Discontinued 006, 10/18/2002, 2001, Additional history exists Pneumococcal Immunization Combined Aged Out 02/05/2007, 10/18/2002, 01/17/2002, Additional history exists No longer eligible based on patient's age to complete this topic Varicella Immunization Discontinued 10/11/2007, 2002 Hepatitis A Immunization Discontinued 04/13/2008, 0806/2007 DTaP/Tdap/Td Immunization Discontinued 2012, 08/08/2005, 10/18/2002, Additional history exists TdaP Immunization Completed 08/16/2012 Meningococcal Immunization (ACWY) Completed 08/10/2018, 08/16/2012 Rotavirus Immunization Aged Out No lo nger eligible based on patient's age to complete this topic Insurance [place]ICAID [place] Care Teams Peoplesoft Fscm Developer Relationship Specialty Start Date End Date Cheyenne Middleton MD [address] [place] [address] PCP - General Pediatrics 09/27/18
[2024-05-01 13:58] VITALS: BP 145/68; PULSE 118; RESP 20; TEMP 37; O2SAT 100
--- NOTE | 2024-05-01 14:40 | ED.GENADULT ---
HPI - General Adult General Chief complaint: Upper Respiratory Infection Stated complaint: stiff neck,chest congestion,temp Source: patient and family Mode of arrival: ambulatory Limitations: no limitations History of Present Illness HPI narrative: Patient presents for evaluation of fever. She indicates she had respiratory symptoms that she describes as a common cold that started about three weeks ago. Her mother had influenza and pneumonia about a week prior to that time. Pt took mucinex until about three days ago, at which time she felt as though her respiratory symptoms had improved. Over the past few days she developed a fever. She also reported swelling in the lateral aspect of the left side of her neck. She describes as the area of swelling as a bump . She initially thought that she slept on it wrong. She has full ROM of the neck but movement does reproduce symptoms of pain. She still has a cough. She denies sore throat and nuchal rigidity. She applied a topical analgesic product and applied a heating pad. Mother encouraged her to be evaluated. She denies any redness in the area of concern in her neck. She denies any drainage. Related Data Allergies Allergy/AdvReac Type Severity Reaction Status Date / Time No Known Allergies Allergy Verified 02/09/23 14:16 Review of Systems Review of Systems: CONSTITUTIONAL: Reports fever. Denies chills. EYES: Denies visual changes, redness, or discharge. ENT: Denies rhinorrhea, congestion, sore throat, or otalgia. CARDIOVASCULAR: Denies chest pain, palpitations, or edema. RESPIRATORY: Reports cough. Denies SOB GASTROINTESTINAL: Denies abdominal pain, nausea, vomiting, or diarrhea. GENITOURINARY: Denies dysuria or hematuria. SKIN: Denies rash or itching. MUSCULOSKELETAL: Reports ?bump? in the neck with associated pain NEUROLOGIC: Denies headache, numbness, dizziness, or weakness. PSYCHIATRIC: Denies anxiety or depression. [facility] Past Medical History Medical History No pertinent past medical history Surgical History Surgical History No pertinent past surgical history Family History Family History Mother Pneumonia Social History Social History (Reviewed 05/01/24 @ 14:54 by Joselito Vasquez, [facility], ) Substance use: never Living arrangements: with family Gender identity (if verbalized by the patient): Female Spiritual care concerns: No Exam Narrative: GENERAL: Well-appearing, well-nourished, and in no acute distress. HEAD: Normocephalic, atraumatic. EYES: PERRLA and EOMI. ENT: Nares clear, no rhinorrhea or epistaxis. Mucous membranes moist. Oropharynx without tonsillar hypertrophy exudate or other lesions. Bilateral TMs pearly santiago nonbulging NECK: Supple. There is a slightly raised area of induration to the left lateral aspect of the neck that is about 10x4 cm in size. There is some associated warmth without erythema or drainage CHEST: Occasional cough present on exam. Clear to auscultation. No respiratory distress. No wheezes rales or rhonchi HEART: Regular rate and rhythm. No murmur heard. Normal peripheral pulses. ABDOMEN: Soft, nontender, nondistended, normal active bowel sounds. EXTREMITIES: Normal range of motion. No edema. SKIN: Warm, dry, no rash. NEURO: Negative Brudzinki and Kernig's sign. No focal deficits. Alert and oriented x3. PSYCH: Normal mood and affect. Course Course Emergency Course: This is a 23-year-old female who presented for evaluation fever, cough, and a ?bump? to the left lateral neck. I offered to check CXR but she declined. I offered to send her to the ER for CT imaging of her neck. She declined. Area could be a cellulitis vs lymphadenopathy 2/2 recent sick symptoms. Through shared decision making agreed to trial of abx with plan to call PCP tomorrow for an appt. If she has difficulty breathing or swallowing she should go to the emergency department. She has no meningeal signs on exam today. Doxycycline should provider with coverage for cellulitis as well as some respiratory pathogens. Pt in agreement with plan of care. Level of Care: Express Care Visit Vital Signs Vital signs: Vital Signs Temperature 37.0 C 05/01/24 13:58 Pulse Rate 118 H 05/01/24 13:58 Respiratory Rate 20 05/01/24 13:58 Blood Pressure 145/68 H 05/01/24 13:58 Pulse Oximetry 100 05/01/24 13:58 Oxygen Delivery Room Air 05/01/24 13:58 Temperature 37.0 C 05/01/24 13:58 Pulse Rate 118 H 05/01/24 13:58 Respiratory Rate 05/01/24 13:58 Blood Pressure 145/68 H 05/01/24 13:58 Pulse Oximetry 100 05/01/24 13:58 Oxygen Delivery Room Air 05/01/24 13:58 Medical Decision Making Vital Signs Vital Signs: Vital Signs Temperature 37.0 C 05/01/24 13:58 Pulse Rate 118 H 05/01/24 13:58 Respiratory Rate 05/01/24 13:58 Blood Pressure 145/68 H 05/01/24 13:58 Pulse Oximetry 05/01/24 13:58 Oxygen Delivery Room Air 05/01/24 13:58 Temperature 37.0 C 05/01/24 13:58 Pulse Rate 118 H 05/01/24 13:58 Respiratory Rate 05/01/24 13:58 Blood Pressure 145/68 H 05/01/24 13:58 Pulse Oximetry 05/01/24 13:58 Oxygen Delivery Room Air 05/01/24 13:58 Discharge Plan Discharge Clinical Impression: Myalgia of muscle of neck, Fever Patient Disposition: Home, Self-Care Condition: Stable Instructions: Antibiotic Form, Fever in Adults (ED), Musculoskeletal Pain (ED) Additional Instructions: PLEASE FOLLOW UP WITH YOUR PRIMARY CARE PROVIDER TOMORROW TO DETERMINE WHETHER CT SCAN OF NECK IS WARRANTED IF YOU HAVE WORSENING SYMPTOMS OR DIFFICULTY SWALLOWING/BREATHING, PLEASE GO TO THE EMERGENCY DEPARTMENT Patient Language: Kazakh Prescriptions: New doxycycline hyclate 100 mg tablet 100 mg PO BID Qty: 20 0RF Follow-up/Referrals: Bia,Yumi Leon APN [Primary Care Provider] - Time of Disposition: 14:31
== END 2024-05-01 14:36 | disposition home or self-care (01) ==
PROVIDERS: Emergency Provider Nurse Practitioner; PCP Nurse Practitioner Family
DX: M79.10 Myalgia, unspecified site (principal)
CPT/HCPCS: 99213; G0463

== ENCOUNTER 2024-07-12 13:26 | Emergency (ER) | payer OTHER, SELFPAY ==
--- NOTE | ~2024-07-12 | XR_ITS ---
Clinical Indication: Cough PA and lateral views of the chest: Comparison: None Findings: The lungs are clear, without evidence of focal consolidation or pleural effusion. Cardiome diastinal silhouette is within normal limits. Bones and soft tissues are unremarkable. Impression: Normal chest. Reviewed, dictated and finalized at location . Impression: Normal chest.
--- OUTSIDE RECORDS SUMMARY | 2024-07-12 13:31 | XMS_ITS | Clinical Summary ---
Author Organization [facility] Address [address] [facility], [address] [address] Phone Care Team Providers Care Server Manager Name Role Phone Cheyenne Middleton MD Primary Care Provider + [phone] Allergies No known active allergies Medications Vitamin D, Cholecalciferol, 1000 units Capsule Take 2,000 Units by mouth. Active [place] 3 1000 MG Capsule Take 1,000 mg [...] Immunization (1 of 2 - Standard) 2017 Influenza Immunization (#1) 11/08/202312/07, 01/02/2014, 12/27/2012, Additional history exists SARS-COV-2 Immunization (3 - season) 2023 12/02/2020, 11/11/2020 Respiratory Syncytial Virus [...] 10/11/2007, 2002 Hepatitis A Immunization Discontinued 04/13/2008, 06/2007 DTaP/Tdap/Td Immunization Discontinued 2012, 08/08/2005, 10/18/2002, Additional history exists TdaP Immunization Completed 08/16/2012 Meningococcal Immunization (ACWY) Completed 08/10/2018, 08/16/2012 Rotavirus Immunization Aged Out No lo nger eligible based on patient's age to complete this topic Insurance [place]ID [place] Care Teams Server Manager Relationship Specialty Start Date End Date Cheyenne Middleton MD [address] [place] [address] PCP - General Pediatrics 09/27/18
--- OUTSIDE RECORDS SUMMARY | 2024-07-12 13:31 | XMS_ITS | Data Portability ---
Author Organization [facility] Address [address] [place] [address] Care Team Providers Care Concrete Journeyman Name Role Phone AMEZQUITA, YUMI Primary Care Provider [phone] Assessment No assessment recorded. Plan of Treatment Reminders Order Date Submit Date Provider Last Modified By Organization Details Last Modified Time Details Appointments None recorded. Lab Mycobacteri um tuberculosi s stimulated gamma interferon, qual, blood 2023 024 [facility], [address] [facility] [address], [place], [address], 4 20:07:49 HbA1c (hemoglobin A1c), blood 2023 024 [facility], [address] [facility], [facility], [place], [address], 4 16:11:51 vitamin D, 25-hydroxy, total, serum 2023 024 AKIN [facility], [address] [place] [address] 2, [place], [address], 4 16:11:52 TSH, ultra-sensi tive, serum 2023 024 AKIN [facility], [address], [place], [address], 4 16:11:50 CMP, serum or plasma 2023 024 [facility], [address], [place], [address], 03:09:53 lipid panel, serum 2023 [facility], [address], [place], [address], 03:09:51 CBC 2023 [facility], [address], [place], [address], 03:09:54 Referral None recorded. Procedures None recorded. Surgeries None recorded. Imaging None recorded. Medication Orders None recorded. Patient TargetsNo targets recorded. Patient Instructions Encounter Date Encounter Id Patient Instructions Last Modified By Organization Details Last Modified Time 02/22/2024 [id number] influenza (flu) vaccine: care instructions Not available [...] total 177 mg/dL 100-19 9 Not Available [facility] Department [address], [place], [address], 02/23/2024 03:09:51 02/22/20 24 02/22/2024 LIPID PANEL triglyceride s 199 mg/dL 0-149 above high normal Not Available [facility] Department [address] [place], [address], 02/23/2024 03:09:51 02/22/20 24 02/22/2024 LIPID PANEL HDL cholesterol 43 mg/dL 40-999 Not Available [facility] Department [address] [place], [address], 02/23/2024 03:09:51 02/22/20 24 02/22/2024 LIPID PANEL VLDL cholesterol aneta 40 mg/dL 5-40 Not Available [facility] Department [address] [place] [address], [address], 02/23/2024 03:09:51 02/22/20 24 02/22/2024 LIPID PANEL LDL chol calc ([facility]) 123 mg/dL 0-99 above high normal Not Available [facility] Department [address] [place] [address], [address], 02/23/2024 03:09:51 02/22/20 24 02/22/2024 COMP. METAB OLIC PANEL (14) glucose 106 mg/dL 70-99 above high normal Not Available [facility] Department [address] [place] [address], [address], 02/23/2024 03:09:53 02/22/20 24 02/22/2024 COMP. METAB OLIC PANEL (14) BUN 10 mg/dL 6-20 Not Available [facility] Department [address] [place] [address], [address], 02/23/2024 03:09:53 02/22/20 24 02/22/2024 COMP. METAB OLIC PANEL (14) creatinine 0.72 mg/dL 0.76-1 .27 below low normal Not Available [facility] Department [address] [place] [address], [address], 02/23/2024 03:09:53 02/22/20 24 02/22/2024 COMP. METAB OLIC PANEL (14) eGFR 121 >=60 Units for eGFR value s are mL/mi n/1.7 3 The eGFR Calcu latio n has not been valid ated for patie nts under the age of 18. If test resul ts are displ ayed for a patie nt under the age of 18, disre fara that value . Not Available [facility] Department [address] [place] [address], [address], 02/23/2024 03:09:53 02/22/20 24 02/22/2024 COMP. METAB OLIC PANEL (14) BUN/creatini ne ratio 14 9-23 Not Available [facility] Department [address] [place] [address], [address], 02/23/2024 03:09:53 02/22/20 24 02/22/2024 COMP. METAB OLIC PANEL (14) sodium 139 mmol/ L 134-14 4 Not Available [facility] Department [address] [place] [address], [address], 02/23/2024 03:09:53 02/22/20 24 02/22/2024 COMP. METAB OLIC PANEL (14) potassium 4.4 mmol/ L 3.5-5. 2 Not Available [facility] Department [address] [place] [address], [address], 02/23/2024 03:09:53 02/22/20 24 02/22/2024 COMP. METAB OLIC PANEL (14) chloride 100 mmol/ L 96-106 Not Available [facility] Department [address] [place] [address], [address], 02/23/2024 03:09:53 02/22/20 24 02/22/2024 COMP. METAB OLIC PANEL (14) carbon dioxide, total 28 mmol/ L 20-29 Not Available [facility] Department [address] [place] [address], [address], 02/23/2024 03:09:53 02/22/20 24 02/22/2024 COMP. METAB OLIC PANEL (14) calcium 9.4 mg/dL 8.7-10 .2 Not Available [facility] Department [address] [place], [address], 02/23/2024 03:09:53 02/22/20 24 02/22/2024 COMP. METAB OLIC PANEL (14) protein, total 7.7 g/dL 6.0-8. 5 Not Available [facility] Department [address] [place], [address], 02/23/2024 03:09:53 02/22/20 24 02/22/2024 COMP. METAB OLIC PANEL (14) albumin 4.5 g/dL 4.0-5. 0 Not Available [facility] Department [address] [place], [address], 02/23/2024 03:09:53 02/22/20 24 02/22/2024 COMP. METAB OLIC PANEL (14) globulin, total 3.2 g/dL 1.5-4. 5 Not Available [facility] Department [address] [place], [address], 02/23/2024 03:09:53 02/22/20 24 02/22/2024 COMP. METAB OLIC PANEL (14) A/G ratio 1.0 1.2-2. 2 below low normal Not Available [facility] Department [address] [place], [address], 02/23/2024 03:09:53 02/22/20 24 02/22/2024 COMP. METAB OLIC PANEL (14) bilirubin, total 0.3 mg/dL 0.0-1. 2 Not Available [facility] Department [address] [place], [address], 02/23/2024 03:09:53 02/22/20 24 02/22/2024 COMP. METAB OLIC PANEL (14) alkaline phosphatase 73 IU/L 44-121 Not Available [facility] Department [address] [place], [address], 02/23/2024 03:09:53 02/22/20 24 02/22/2024 COMP. METAB OLIC PANEL (14) AST (SGOT) 20 IU/L 0-[address] [facility] Department [address] [place], [address], 02/23/2024 03:09:53 02/22/20 24 02/22/2024 COMP. METAB OLIC PANEL (14) ALT (SGPT) 36 IU/L 0-32 above high normal Not Available [facility] Department [address] [place], [address], 02/23/2024 03:09:53 02/22/20 24 02/22/2024 CBC, PLATE LET, NO DIFFE RENTI AL WBC 6.6 x10e3 /uL 3.4-10 .8 Not Available [facility] Department [address] [place], [address], 02/23/2024 03:09:54 02/22/20 24 02/22/2024 CBC, PLATE LET, NO DIFFE RENTI AL RBC 5.32 x10e6 /uL 3.77-5 .28 above high normal Not Available [facility] Department [address] [place], [address], 02/23/2024 03:09:54 02/22/20 24 02/22/2024 CBC, PLATE LET, NO DIFFE RENTI AL hemoglobin 13.8 g/dL 11.1-1 5.9 Not Available [facility] Department [address] [place], [address], 02/23/2024 03:09:54 02/22/20 24 02/22/2024 CBC, PLATE LET, NO DIFFE RENTI AL hematocrit 45.7 % 34.0-4 6.6 Not Available [facility] Department [address] [place], [address], 02/23/2024 03:09:54 02/22/20 24 02/22/2024 CBC, PLATE LET, NO DIFFE RENTI AL MCV 86 fL 79-97 Not Available [facility] Department [address] [place], [address], 02/23/2024 03:09:54 02/22/20 24 02/22/2024 CBC, PLATE LET, NO DIFFE RENTI AL MCH 25.9 pg 26.6-3 3.0 below low normal Not Available [facility] Department [address] [place], [address], 02/23/2024 03:09:54 02/22/2002/22/2024 CBC, PLATE LET, NO DIFFE RENTI AL MCHC 30.2 g/dL 31.5-3 5.7 below low normal Not Available [facility] Department [address] [place], [address], 02/23/2024 03:09:54 02/22/20 24 02/22/2024 CBC, PLATE LET, NO DIFFE RENTI AL RDW 13.3 % 11.5-1 4.5 Not Available [facility] Department [address] [place], [address], 02/23/2024 03:09:54 02/22/20 24 02/22/2024 CBC, PLATE LET, NO DIFFE RENTI AL platelets 314 x10e3 /uL 150-45 0 Mean Plate let Volum e 10.8 fL 8.9-1 2.7 N Not Available [facility] Department [address] [place], [address], 02/23/2024 03:09:54 02/22/20 24 02/22/2024 CBC, PLATE LET, NO DIFFE RENTI AL NRBC 0 % 0-0 Not Available [facility] Department [address] [place], [address], 02/23/2024 03:09:54 02/22/20 24 02/23/2024 TSH RFX ON ABNOR MAL TO FREE T4 TSH 3.240 uIU/m L 0.450- 4.500 Not Available [facility] ([facility]) [address] [facility], [place], [address], 02/23/2024 16:11:50 02/22/20 24 02/23/2024 HEMOG LOBIN A1C hemoglobin A1C 5.8 % 4.8-5. 6 above high normal Predi abete s: 5.7 - 6.4 Diabe yamil: >6.4 Glyce artis contr ol for adult s with diabe yamil: <7.0 Not Available [facility] ([facility]) [address] [facility], [place], [address], 02/23/2024 16:11:51 02/22/20 24 02/23/2024 VITAM IN [...] 2010; 96(7) :1911 -30. Not Available [facility] ([facility]) [address] [facility], [place], [address], 02/23/2024 16:11:52 02/26/20 24 02/27/2024 QUANT IFERO N-TB GOLD PLUS quantiferon incubation INCUBA TION PERFOR MED. Not Available [facility] ([facility]) [address] [facility], [place], [address], 03/01/2024 20:07:49 02/26/20 24 02/27/2024 QUANT IFERO [...] ol for the test. Not Available [facility] ([facility]) [address] [facility], [place], [address], 03/01/2024 20:07:49 02/26/20 24 03/01/2024 QUANT IFERO [...] y metho dolog y Not Available [facility] ([facility]) [address] [facility], [place], [address], 03/01/2024 20:07:49 02/26/20 24 03/01/2024 QUANT IFERO N-TB GOLD PLUS quantiferon TB1 Ag value 0.01 IU/mL Not Available [facility] ([facility]) [address] [place], [address], 03/01/2024 20:07:49 02/26/20 24 03/01/2024 QUANT IFERO N-TB GOLD PLUS quantiferon TB2 Ag value 0.04 IU/mL Not Available [facility] ([facility]) [address] [place], [address], 03/01/2024 20:07:49 02/26/20 24 03/01/2024 QUANT IFERO N-TB GOLD PLUS quantiferon nil value 0.02 IU/mL Not Available [facility] ([facility]) [address] [place], [address], 03/01/2024 20:07:49 02/26/20 24 03/01/2024 QUANT IFERO N-TB GOLD PLUS quantiferon mitogen value >10.00 IU/mL Not Available [facility] ([facility]) [address] [place], [address], 03/01/2024 20:07:49 Result Notes None recorded. Problems Name Problem SNOMED Code Status Onset Date Resolution Date Notes Provider Name and Address Organization Details Recorded Time Morbid obesity 928363614 Active 024 Yumi Amezquita APN, INDUSTRIAL PHARMACIST-C Attn: Accounting ,[address] [place], [address] , [place] - [place] 4 10:19:44 Problem Notes None recorded. Procedures Surgical [...] Name and Address Organization Details Recorded Time 035424 amoxicill in medicatio n hives Not available Not available 02/22/2024 723 RxNorm LAZARO Vences, [place] - [facility] 4 10:03:52 Medications Name Sig Start Date Stop Date [...] Updated DateTime 4 167.64 cm 60.7 kg/m2 444818. 73 g 98 % 98 % 16 /min 98.4 [degF] 88 /min 140 mm[Hg] 94 mm[Hg] LAZARO Vences [facility] 4 10:13:10 Social History Question Answer Notes LastModified by Organizat ion Details LastModified Time Tobacco Smoking Status Never Smoker ALZARO Vences null, [facility] 02/22/2024 10:07:04 What Is Your Level Of [...] not available 02/22/2024 What Is Your Occupation? [employer] Information not available 02/22/2024 Are There Any [...] Anxious, Or Unable To Sleep At Night)? [id number] Information not available 02/22/2024 Do You Use [...] History Condition Response Coronary Artery Disease N High Blood Pressure N Atrial Fibrillation N Thyroid Problems N Kidney or Bladder Problems N GI Problems N Depression N COPD N Blood Clots N Have you had a mammogram in the last yea r? N Skin Problems N Eating Disorder N Anemia N Heart Attack ([place]) N Anxiety Disorder N Diabetes N Muscle, [...] unspecified formulation 4 completed Yumi Amezquita APN, INDUSTRIAL PHARMACIST-C Attn: Accounting,[address] [place], [address], [facility] - [facility] 02/22/2024 10:15:24 Hib, unspecified formulation 7 completed Yumi Amezquita, CORPORATE RELATIONS DIRECTOR, INDUSTRIAL PHARMACIST-C Attn: Accounting,[address] [facility], [place], [place], [address] [place] [address], [facility] - [facility] 02/22/2024 10:15:24 Hib-Hep B 2 completed Yumi Amezquita, CORPORATE RELATIONS DIRECTOR, INDUSTRIAL PHARMACIST-C Attn: Accounting,[address] [facility], [place], [place], [address] [place] [address], [place] - [facility] 02/22/2024 10:15:24 Hib-Hep B 3 completed Yumi Amezquita, CORPORATE RELATIONS DIRECTOR, INDUSTRIAL PHARMACIST-C Attn: Accounting,[address] [facility], [place], [place], [address] [place] [address], [facility] - [facility] 02/22/2024 10:15:24 Hib-Hep B 2 completed Yumi Amezquita, CORPORATE RELATIONS DIRECTOR, INDUSTRIAL PHARMACIST-C Attn: Accounting,[address] [facility], [place], [place], [address] [place] [address], [facility] - [facility] 02/22/2024 10:15:24 IPV 6 completed Yumi Amezquita, CORPORATE RELATIONS DIRECTOR, INDUSTRIAL PHARMACIST-C Attn: Accounting,[address] [facility], [place], [place], [address] [place] [address], [facility] - [facility] 02/22/2024 10:15:24 IPV 2 completed Yumi Amezquita, CORPORATE RELATIONS DIRECTOR, INDUSTRIAL PHARMACIST-C Attn: Accounting,[address] [facility], [place], [place], [address] [place] [address], [place] - [facility] 02/22/2024 10:15:24 IPV 3 completed Yumi Amezquita, CORPORATE RELATIONS DIRECTOR, INDUSTRIAL PHARMACIST-C Attn: Accounting,[address] [facility], [place], [place], [address] [place] [address], [place] - [facility] 02/22/2024 10:15:24 IPV 2 completed Yumi Amezquita, CORPORATE RELATIONS DIRECTOR, INDUSTRIAL PHARMACIST-C Attn: Accounting,[address] [facility], [place], [place], [address] [place] [address], [place] - [facility] 02/22/2024 10:15:24 MMR 3 completed Yumi Amezquita, CORPORATE RELATIONS DIRECTOR, INDUSTRIAL PHARMACIST-C Attn: Accounting,[address] [facility], [place], [place], [address] [place] [address], [facility] - SI 02/22/2024 10:15:24 MMR 6 completed Yumi Amezquita, CORPORATE RELATIONS DIRECTOR, INDUSTRIAL PHARMACIST-C Attn: Accounting,[address] [facility], [place], [place], [address] [place] [address], [facility] - [facility] 02/22/2024 10:15:24 COVID-19, mRNA, LNP-S, PF, 30 mcg/0.3 mL dose 1 completed Yumi Amezquita, CORPORATE RELATIONS DIRECTOR, INDUSTRIAL PHARMACIST-C Attn: Accounting,[address] [facility], [place], [place], [address] [place] [address], [facility] - [facility] 02/22/2024 10:15:24 COVID-19, mRNA, LNP-S, PF, 30 mcg/0.3 mL dose 1 completed Yumi Amezquita, CORPORATE RELATIONS DIRECTOR, INDUSTRIAL PHARMACIST-C Attn: Accounting,[address] [facility], [place], [place], [address] [place] [address], [facility] - [facility] 02/22/2024 10:15:24 pneumococcal conjugate PCV 7 2 completed Yumi Amezquita, CORPORATE RELATIONS DIRECTOR, INDUSTRIAL PHARMACIST-C Attn: Accounting,[address] [facility], [place], [place], [address] [place] [address] - [place] 02/22/2024 10:15:24 pneumococcal conjugate PCV 7 3 completed Yumi Amezquita, CORPORATE RELATIONS DIRECTOR, INDUSTRIAL PHARMACIST-C Attn: Accounting,[address] [facility], [place], [place], [address] [place] [address], [facility] - [facility] 02/22/2024 10:15:24 pneumococcal conjugate PCV 7 2 completed Yumi Amezquita, CORPORATE RELATIONS DIRECTOR, INDUSTRIAL PHARMACIST-C Attn: Accounting,[address] [facility], [place], [place], [address] [place] [address], [facility] - [facility] 02/22/2024 10:15:24 pneumococcal conjugate PCV 7 2 completed Yumi Amezquita, CORPORATE RELATIONS DIRECTOR, INDUSTRIAL PHARMACIST-C Attn: Accounting,[address] [facility], [place], [place], [address] [place] [address], [facility] 02/22/2024 10:15:24 pneumococcal polysaccharide PPV23 7 completed Yumi Amezquita CORPORATE RELATIONS DIRECTOR, INDUSTRIAL PHARMACIST-C Attn: Accounting,[address] [facility], [place], [place], [address] [place] [address], [facility] 02/22/2024 10:15:24 influenza, unspecified formulation 7 completed Yumi Amezquita CORPORATE RELATIONS DIRECTOR, INDUSTRIAL PHARMACIST-C Attn: Accounting,[address] [facility], [place], [place], [address] [place] [address], [facility] 02/22/2024 10:15:24 influenza, unspecified formulation 8 completed Yumi Amezquita CORPORATE RELATIONS DIRECTOR, INDUSTRIAL PHARMACIST-C Attn: Accounting,[address] [facility], [place], [place], [address] [place] [address], [facility] 02/22/2024 10:15:24 Tdap 3 completed Yumi Amezquita CORPORATE RELATIONS DIRECTOR, INDUSTRIAL PHARMACIST-C Attn: Accounting,[address] [facility], [place], [place], [address] [place] [address], [facility] 02/22/2024 10:15:24 varicella 3 completed Yumi Amezquita CORPORATE RELATIONS DIRECTOR, INDUSTRIAL PHARMACIST-C Attn: Accounting,[address] [facility], [place], [place], [address] [place] [address], [facility] 02/22/2024 10:15:24 varicella 8 completed Yumi Amezquita CORPORATE RELATIONS DIRECTOR, INDUSTRIAL PHARMACIST-C Attn: Accounting,[address] [facility], [place], [place], [address] [place] [address], [facility] 02/22/2024 10:15:24 Hep B, unspecified formulation 2 completed Yumi Amezquita CORPORATE RELATIONS DIRECTOR, INDUSTRIAL PHARMACIST-C Attn: Accounting,[address] [facility], [place], [place], [address] [place] [address], [facility] 02/22/2024 10:15:24 Influenza, split virus, trivalent, preservative 1 completed Yumi Amezquita CORPORATE RELATIONS DIRECTOR, INDUSTRIAL PHARMACIST-C Attn: Accounting,[address] [facility], [place], [place], [address] [place] [address], [facility] - SI 02/22/2024 10:15:24 Influenza, split virus, trivalent, PF 2 completed Yumi Amezquita, CORPORATE RELATIONS DIRECTOR, INDUSTRIAL PHARMACIST-C Attn: Accounting,[address] [facility], [place], [place], [address] [place] [address], [facility] - SI 02/22/2024 10:15:24 influenza, split (incl. purified surface antigen) 0 completed Yumi Amezquita, CORPORATE RELATIONS DIRECTOR, INDUSTRIAL PHARMACIST-C Attn: Accounting,[address] [facility], [place], [place], [address] [place] [address], [facility] - [facility] 02/22/2024 10:15:24 influenza, split (incl. purified surface antigen) 9 completed Yumi Amezquita, CORPORATE RELATIONS DIRECTOR, INDUSTRIAL PHARMACIST-C Attn: Accounting,[address] [facility], [place], [place], [address] [place] [address], [facility] - SI 02/22/2024 10:15:24 Hep A, pediatric, unspecified formulation 8 completed Yumi Amezquita, CORPORATE RELATIONS DIRECTOR, INDUSTRIAL PHARMACIST-C Attn: Accounting,[address] [facility], [place], [address] [place] [address], [facility] - [facility] 02/22/2024 10:15:24 meningococcal MCV4P 9 completed Yumi Amezquita, CORPORATE RELATIONS DIRECTOR, INDUSTRIAL PHARMACIST-C Attn: Accounting,[address] [facility], [place], [address] [place] [address], [facility] - [facility] 02/22/2024 10:15:24 meningococcal MCV4P 3 completed Yumi Amezquita, CORPORATE RELATIONS DIRECTOR, INDUSTRIAL PHARMACIST-C Attn: Accounting,[address] [facility], [place], [address] [place] [address], [place] - [facility] 02/22/2024 10:15:24 DTaP 6 completed Yumi Amezquita, CORPORATE RELATIONS DIRECTOR, INDUSTRIAL PHARMACIST-C Attn: Accounting,[address] [facility], [place], [address] [place] [address], [place] [facility] 02/22/2024 10:15:24 DTaP 2 completed Yumi Amezquita, CORPORATE RELATIONS DIRECTOR, INDUSTRIAL PHARMACIST-C Attn: Accounting,[address] [facility], [place], [address] [place] [address], [facility] 02/22/2024 10:15:24 DTaP 3 completed Yumi Amezquita, CORPORATE RELATIONS DIRECTOR, INDUSTRIAL PHARMACIST-C Attn: Accounting,[address] [facility], [place], [address] [place] [address], [facility] 02/22/2024 10:15:24 DTaP 2 completed Yumi Amezquita, CORPORATE RELATIONS DIRECTOR, INDUSTRIAL PHARMACIST-C Attn: Accounting,[address] [facility], [place], [address] [place] [address], [facility] 02/22/2024 10:15:24 DTaP 2 completed Yumi Amezquita, CORPORATE RELATIONS DIRECTOR, INDUSTRIAL PHARMACIST-C Attn: Accounting,[address] [facility], [place], [address] [place] [address], [facility] 02/22/2024 10:15:24 Influenza, split virus, quadrivalent, PF 5 completed Yumi Amezquita, CORPORATE RELATIONS DIRECTOR, INDUSTRIAL PHARMACIST-C Attn: Accounting,[address] [facility], [place], [address] [place] [address], [facility] 02/22/2024 10:15:24 Influenza, split virus, quadrivalent, PF 3 completed Yumi Amezquita, CORPORATE RELATIONS DIRECTOR, INDUSTRIAL PHARMACIST-C Attn: Accounting,[address] [facility], [place], [address] [place] [address], [facility] 02/22/2024 10:15:24 Influenza, split virus, quadrivalent, PF 4 completed Yumi Amezquita, CORPORATE RELATIONS DIRECTOR, INDUSTRIAL PHARMACIST-C Attn: Accounting,[address] [facility], [place], [address] [place] [address], [facility] 02/22/2024 10:15:24 Hep A, unspecified formulation 9 completed Yumi Amezquita, CORPORATE RELATIONS DIRECTOR, INDUSTRIAL PHARMACIST-C Attn: Accounting,[address] [facility], [place], [place], [address] [place] [address], [facility] 02/22/2024 10:15:24 Influenza, split virus, trivalent, preservative 4 completed Angelica Louis RMA null, [place] - [place] 02/22/2024 10:41:21 Tdap 4 completed Angelica Louis RMAr null, [place] - [facility] 02/22/2024 10:41:22 Past Encounters Encounter ID Performer Location Encounter Start Date Encounter Closed Date Diagnosis/Indication Diagnosis SNOMED-CT Code Diagnosis ICD10 Code Diagnosis Note [id number] MD Red [facility] (Adult Med) [address] [place] [address] 02/22/2024 09:51:28 02/24/2024 16:36:02 Adult health examination 901436548 Z00.01 Encouraged routine POLYGRAPH OPERATOR, vision, dental exams, well balanced diet. Administra tion of influenza vaccine 94513190 Z23 Tuberculos is screening 884705933 Z11.7 needed for day care worker form Morbid obesity 330761355 E66.01 weight loss advised Elevated blood-pressure reading without diagnosis of hypertension 116091393 R03.0 BP in pre-hypert ensive range, dwp risk, reducing salt and increasing exercise Administra tion of diphtheria, pertussis, and tetanus vaccine [id number] Z23 History of asthma 450497 007 Z87.09 has not had issues since [...] [place] Member ID Guarantor Name 02/22/2024 1 [facility] - DOS ON OR AFTER 20 (MEDICAID REPLACEMENT - HMO) Merlyn Cornejo [id number] Merlyn Cornejo Notes Date Note Type Note Provider Name and Address Organization Details Recorded Time 02/22/2024 text/html last dr was peds in 2019Needs work physical and tb test Yumi Amezquita APN, INDUSTRIAL PHARMACIST-C Attn: Accounting,[address] [facility], [place], [address], [facility] 02/22/2024 10:31:33 OBGyn Episode No OBEpisode recorded.
--- OUTSIDE RECORDS SUMMARY | 2024-07-12 13:31 | XMS_ITS | Clinical Summary ---
Author Organization [facility] Address [address] [place] [address] Care Team Providers Care Tin Worker Name Role Phone Cheyenne Middleton MD Primary Care Provider Source Comments [facility],non-owned Affiliates and Associated Physician Practices is amultiple site organization consisting of ambulatory clinics and hospital sitesin [place], [place], [place] and [place]. This disclosure is being madepursuant to the Care Everywhere program and may not contain all information available regarding this patient. Last updated 17.[facility] Allergies No known active allergies Medications * Be aware that medications may not be up to date on this document. Alwaysverify current medications with the patient. Vitamin D, Cholecalciferol, 1000 UNITS CAPS Take 2,000 Units by mouth Active fish oil/omega-3 fatty acids (PROMEGA;CARDI-O REBECCA 3) 1000 MG capsule Take 1,000 mg by mouth once Active sulfamethoxazole -trimethoprim (BACTRIM DS; SEPTRA DS) 800-160 MG tablet Take 1 tablet by mouth 2 times daily Active Active Problems Problem Noted Date Diagnosed Date Obesity 09/18/2010 Asthma 10/17/2009 Allergic rhinitis 10/17/2009 Family History Relation Name Status Comments Father Alive Mother Alive Social History Tobacco Use Types Packs/Day Years Used Date Smoking Tobacco: Never Comments Unknown Sex and Gender Information Value Date Recorded Sex Assigned at Not on file Legal Sex 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 Gender Identity Not on file Sexual Orientation [...] Health Maintenance Due Date Last Done Comments HIV SCREENING 2016 HPV VACCINE (1 - 3-dose series) 2016 CHLAMYDIA/GONORRHEA SCREENING 2017 MENINGOCOCCAL (Group B) VACCINE SHARED DECISION-MAKING (1 of 2 - Standard) 2017 HEPATITIS C SCREENING 07/11/2019 DTAP/TDAP/TD VACCINES (1 - Tdap) 2020 HEPATITIS B VACCINE (1 of 3 - 19+ 3-dose series) 2020 COVID-19 VACCINE (1 - 2023-2 5 season) 2023 DEPRESSION SCREENING 03/09/2024 INFLUENZA VACCINE (Season Ended) 2024 12/25/2014, 01/02/2014, 12/27/2012 ZOSTER VACCINE (1 of 2) 07/16/2051 HIB VACCINE Aged Out No longer eligi ble based on patient's age to complete this topic MENINGOCOCCAL GROUPS A/C/Y/W VACCINE Aged Out No longer eligible b ased on patient's age to complete this topic PNEUMOCOCCAL VACCINE Aged Out No long er eligible based on patient's age to complete this topic Insurance [place]ICAID [place] Member Subscriber Plan / Payer (Ef fective for All Dates) Name:Merlyn Cornejo Relation to Subscriber:Self Name:Merlyn Cornejo Payer ID:Not on file Group ID:Not on file Type:Medicaid [place] Address: [place] [id number] Care Teams Tin Worker Relationship Specialty Start Date End Date Cheyenne Middleton MD [address] [place] [id number] PCP - General 09/20/10
[2024-07-12 13:35] VITALS: BP 141/73; PULSE 112; RESP 18; TEMP 38.2; O2SAT 97
--- NOTE | 2024-07-12 14:20 | ED.GENADULT ---
HPI - General Adult General Chief complaint: Upper Respiratory Infection Stated complaint: Cough/Fever/Vomiting Source: patient Mode of arrival: ambulatory Limitations: no limitations History of Present Illness HPI narrative: Patient presents for evaluation of cough. Symptom onset six weeks ago. She developed a fever yesterday. She now has sinus congestion and clear rhinorrhea. She did have vomiting during coughing episodes. She denies nausea otherwise. 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 She has had multiple episodes of bronchitis in the past and this feels similar. She had asthma in childhood but has not had any episodes in adulthood. Related Data Allergies Allergy/AdvReac Type Severity Reaction Status Date / Time amoxicillin Allergy Intermediate Hives Verified 07/12/24 13:42 Review of Systems Review of Systems: CONSTITUTIONAL: Denies fever, chills, or sweats. EYES: Denies visual changes, redness, or discharge. ENT: Reports sinus congestion and drainage. CARDIOVASCULAR: Denies chest pain, palpitations, or edema. RESPIRATORY: Reports cough. Denies shortness of breath. GASTROINTESTINAL: Reports episodes of vomiting during coughing episodes. Denies nausea otherwise. Denies abdominal pain or diarrhea. GENITOURINARY: Denies dysuria or hematuria. SKIN: Denies rash or itching. MUSCULOSKELETAL: Denies back pain, joint pain, or myalgia. NEUROLOGIC: Denies headache, numbness, dizziness, or weakness. PSYCHIATRIC: Denies anxiety or depression. PMFSH Past Medical History Medical History Asthma Surgical History Surgical History No pertinent past surgical history Family History Family History Mother Pneumonia Social History Social History Substance use: never Living arrangements: with family Gender identity (if verbalized by the patient): Female Spiritual care concerns: No Exam Narrative: GENERAL: Well-appearing, well-nourished, and in no acute distress. HEAD: Normocephalic, atraumatic. EYES: PERRLA and EOMI. ENT: Nares clear, no rhinorrhea or epistaxis. Mucous membranes moist. Oropharynx without tonsillar hypertrophy exudate or other lesions. There is posterior pharyngeal erythema. Left tympanic membrane is erythematous and bulging NECK: Supple. No adenopathy or masses. No carotid bruits or JVD CHEST: Cough present on exam. Clear to auscultation. No respiratory distress. No wheezes rales or rhonchi HEART: Regular rate and rhythm. No murmur heard. Normal peripheral pulses. ABDOMEN: Soft, nontender, nondistended, normal active bowel sounds. EXTREMITIES: Normal range of motion. No edema. SKIN: Warm, dry, no rash. NEURO: No focal deficits. Alert and oriented x3. PSYCH: Normal mood and affect. Course Course Emergency Course: This is a 23 year old female who presented for evaluation of cough the last 6 weeks. Chest x-ray was negative. She does have evidence of otitis media on exam. Heart rate normalized. Will discharge with prednisone and augmentin. Follow up with primary provider. Go to the ER for worsening symptoms. Pt in agreement with plan of care. Level of Care: Express Care Visit Vital Signs Vital signs: Vital Signs Temperature 38.2 C H 07/12/24 13:35 Pulse Rate 112 H 07/12/24 13:35 Respiratory Rate 18 07/12/24 13:35 Blood Pressure 141/73 H 07/12/24 13:35 Pulse Oximetry 97 07/12/24 13:35 Oxygen Delivery Room Air 07/12/24 13:35 Temperature 38.2 C H 07/12/24 13:35 Pulse Rate 112 H 07/12/24 13:35 Respiratory Rate 18 07/12/24 13:35 Blood Pressure 141/73 H 07/12/24 13:35 Pulse Oximetry 97 07/12/24 13:35 Oxygen Delivery Room Air 07/12/24 13:35 Medical Decision Making Vital Signs Vital Signs: Vital Signs Temperature 38.2 C H 07/12/24 13:35 Pulse Rate 112 H 07/12/24 13:35 Respiratory Rate 18 07/12/24 13:35 Blood Pressure 141/73 H 07/12/24 13:35 Pulse Oximetry 97 07/12/24 13:35 Oxygen Delivery Room Air 07/12/24 13:35 Temperature 38.2 C H 07/12/24 13:35 Pulse Rate 112 H 07/12/24 13:35 Respiratory Rate 18 07/12/24 13:35 Blood Pressure 141/73 H 07/12/24 13:35 Pulse Oximetry 97 07/12/24 13:35 Oxygen Delivery Room Air 07/12/24 13:35 Imaging Data Radiologist's impression: Clinical Indication: Cough PA and lateral views of the chest: Comparison: None Findings: The lungs are clear, without evidence of focal consolidation or pleural effusion. Cardiomediastinal silhouette is within normal limits. Bones and soft tissues are unremarkable. Impression: Normal chest. Discharge Plan Discharge Clinical Impression: Chronic cough, Otitis media Patient Disposition: Home Condition: Stable Instructions: Antibiotic Form, Ear Infection (ED), Chronic Cough (ED) Patient Language: Gibraltarian Prescriptions: New prednisone 50 mg tablet 50 mg PO DAILY Qty: 5 0RF cefdinir 300 mg capsule 300 mg PO Q12H Qty: 20 0RF Follow-up/Referrals: Amezquita,Yumi Leon APN [Primary Care Provider] - Time of Disposition: 14:30
== END 2024-07-12 15:02 | disposition home or self-care (01) ==
PROVIDERS: Emergency Provider Nurse Practitioner; PCP Nurse Practitioner Family
DX: R05.3 Chronic cough (principal); H66.92 Otitis media, unspecified, left ear; J45.909 Unspecified asthma, uncomplicated
CPT/HCPCS: 71046; 99213; G0463

== ENCOUNTER 2024-08-08 11:28 | Emergency (ER) | payer OTHER, SELFPAY ==
[2024-08-08 11:40] VITALS: BP 155/92; PULSE 84; RESP 16; TEMP 37.1; O2SAT 98
--- OUTSIDE RECORDS SUMMARY | 2024-08-08 11:58 | XMS_ITS | Clinical Summary ---
Author Organization [facility] Address [address] [facility], [address] [phone] Phone Care Team Providers Care Screen Printing Cloth Spreader Name Role Phone Cheyenne Middleton MD Primary Care Provider [phone] Allergies No known active allergies Medications Vitamin D, Cholecalciferol, 1000 units Capsule Take 2,000 Units by mouth. Active Preble 3 1000 MG Capsule Take 1,000 mg [...] 9:58 AM CDT Height 167.6 cm (5' 6) 10/11/2018 9:58 AM CDT Body Mass Index [...] this topic Insurance MEDICAID [place] Care Teams Screen Printing Cloth Spreader Relationship Specialty Start Date End Date Cheyenne Middleton MD [address] [place] [address] PCP - General Pediatrics 09/27/18
--- OUTSIDE RECORDS SUMMARY | 2024-08-08 11:58 | XMS_ITS | Clinical Summary ---
Author Organization [facility] Address [address] [place] [address] Care Team Providers Care Starch Treating Assistant Name Role Phone Cheyenne Middleton MD Primary Care Provider Source Comments [facility],non-owned Affiliates and Associated Physician Practices is amultiple site organization consisting of ambulatory clinics and hospital sitesin [place], [place], [place] and [place]. This disclosure is being madepursuant to the Care Everywhere program and may not contain all information available regarding this patient. 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
--- OUTSIDE RECORDS SUMMARY | 2024-08-08 11:58 | XMS_ITS | Data Portability ---
Author Organization [facility] Address [address] [facility] [place] [address] Care Team Providers Care Quality Control Coordinator Name Role Phone AMEZQUITA, YUMI Primary Care Provider Assessment No assessment recorded. Plan of Treatment Reminders Order Date Submit Date Provider Last Modified By Organization Details Last Modified Time Details Appointments None recorded. Lab Mycobacteri um tuberculosi s stimulated gamma interferon, qual, blood 2023 024 [facility], [address] [facility], [place], [address], 4 20:07:49 HbA1c (hemoglobin A1c), blood 2023 024 [facility], [address] [facility], [facility], [place], [address], 4 16:11:51 vitamin D, 25-hydroxy, total, serum 2023 024 [facility], [address] [place] [address] 2, [place], [address], 4 16:11:52 TSH, ultra-sensi tive, serum 2023 024 [facility], [address], [place], [address], 4 16:11:50 CMP, serum or plasma 2023 024 [facility], [address], [place], [address], 03:09:53 lipid panel, serum 2023 [facility], [address], [place], [address], 03:09:51 CBC 2023 [facility], [address], [place], [address], 03:09:54 Referral None recorded. Procedures None recorded. Surgeries None recorded. Imaging None recorded. Medication Orders None recorded. Patient TargetsNo targets recorded. Patient Instructions Encounter Date Encounter Id Patient Instructions Last Modified By Organization Details Last Modified Time 02/22/2024 [id number] influenza (flu) vaccine: care instructions Not available [...] total 177 mg/dL 100-19 9 Not Available [facility] [address], [place], [address], 02/23/2024 03:09:51 02/22/20 24 02/22/2024 LIPID PANEL triglyceride s 199 mg/dL 0-149 above high normal Not Available [facility] [address] [place], [address], 02/23/2024 03:09:51 02/22/20 24 02/22/2024 LIPID PANEL HDL cholesterol 43 mg/dL 40-999 Not Available [facility] [address] [place], [address], 02/23/2024 03:09:51 02/22/20 24 02/22/2024 LIPID PANEL VLDL cholesterol aneta 40 mg/dL 5-40 Not Available [facility] [address] [place] [address], [address], 02/23/2024 03:09:51 02/22/20 24 02/22/2024 LIPID PANEL LDL chol calc ([facility]) 123 mg/dL 0-99 above high normal Not Available [facility] [address] [place] [address], [address], 02/23/2024 03:09:51 02/22/20 24 02/22/2024 COMP. METAB OLIC PANEL (14) glucose 106 mg/dL 70-99 above high normal Not Available [facility] [address] [place] [address], [address], 02/23/2024 03:09:53 02/22/20 24 02/22/2024 COMP. METAB OLIC PANEL (14) BUN 10 mg/dL 6-20 Not Available [facility] [address] [place] [address], [address], 02/23/2024 03:09:53 02/22/20 24 02/22/2024 COMP. METAB OLIC PANEL (14) creatinine 0.72 mg/dL 0.76-1 .27 below low normal Not Available [facility] [address] [place] [address], [address], 02/23/2024 03:09:53 02/22/20 24 02/22/2024 COMP. METAB OLIC PANEL (14) eGFR 121 >=60 Units for eGFR value s are mL/mi n/1.7 3 The eGFR Calcu latio n has not been valid ated for patie nts under the age of 18. If test resul ts are displ ayed for a patie nt under the age of 18, disre fara that value . Not Available [facility] [address] [place] [address], [address], 02/23/2024 03:09:53 02/22/20 24 02/22/2024 COMP. METAB OLIC PANEL (14) BUN/creatini ne ratio 14 9-23 Not Available [facility] [address] [place] [address], [address], 02/23/2024 03:09:53 02/22/20 24 02/22/2024 COMP. METAB OLIC PANEL (14) sodium 139 mmol/ L 134-14 4 Not Available [facility] [address] [place] [address], [address], 02/23/2024 03:09:53 02/22/20 24 02/22/2024 COMP. METAB OLIC PANEL (14) potassium 4.4 mmol/ L 3.5-5. 2 Not Available [facility] [address] [place] [address], [address], 02/23/2024 03:09:53 02/22/20 24 02/22/2024 COMP. METAB OLIC PANEL (14) chloride 100 mmol/ L 96-106 Not Available [facility] [address] [place] [address], [address], 02/23/2024 03:09:53 02/22/20 24 02/22/2024 COMP. METAB OLIC PANEL (14) carbon dioxide, total 28 mmol/ L 20-29 Not Available [facility] [address] [place] [address], [address], 02/23/2024 03:09:53 02/22/20 24 02/22/2024 COMP. METAB OLIC PANEL (14) calcium 9.4 mg/dL 8.7-10 .2 Not Available [facility] [address] [place], [address], 02/23/2024 03:09:53 02/22/20 24 02/22/2024 COMP. METAB OLIC PANEL (14) protein, total 7.7 g/dL 6.0-8. 5 Not Available [facility] [address] [place], [address], 02/23/2024 03:09:53 02/22/20 24 02/22/2024 COMP. METAB OLIC PANEL (14) albumin 4.5 g/dL 4.0-5. 0 Not Available [facility] [address] [place], [address], 02/23/2024 03:09:53 02/22/20 24 02/22/2024 COMP. METAB OLIC PANEL (14) globulin, total 3.2 g/dL 1.5-4. 5 Not Available [facility] [address] [place], [address], 02/23/2024 03:09:53 02/22/20 24 02/22/2024 COMP. METAB OLIC PANEL (14) A/G ratio 1.0 1.2-2. 2 below low normal Not Available [facility] [address] [place], [address], 02/23/2024 03:09:53 02/22/20 24 02/22/2024 COMP. METAB OLIC PANEL (14) bilirubin, total 0.3 mg/dL 0.0-1. 2 Not Available [facility] [address] [place], [address], 02/23/2024 03:09:53 02/22/20 24 02/22/2024 COMP. METAB OLIC PANEL (14) alkaline phosphatase 73 IU/L 44-121 Not Available [facility] [address] [place], [address], 02/23/2024 03:09:53 02/22/20 24 02/22/2024 COMP. METAB OLIC PANEL (14) AST (SGOT) 20 IU/L 0-40 Not Available [facility] [address] [place], [address], 02/23/2024 03:09:53 02/22/20 24 02/22/2024 COMP. METAB OLIC PANEL (14) ALT (SGPT) 36 IU/L 0-32 above high normal Not Available [facility] [address] [place], [address], 02/23/2024 03:09:53 02/22/20 24 02/22/2024 CBC, PLATE LET, NO DIFFE RENTI AL WBC 6.6 x10e3 /uL 3.4-10 .8 Not Available [facility] [address] [place], [address], 02/23/2024 03:09:54 02/22/20 24 02/22/2024 CBC, PLATE LET, NO DIFFE RENTI AL RBC 5.32 x10e6 /uL 3.77-5 .28 above high normal Not Available [facility] [address] [place], [address], 02/23/2024 03:09:54 02/22/20 24 02/22/2024 CBC, PLATE LET, NO DIFFE RENTI AL hemoglobin 13.8 g/dL 11.1-1 5.9 Not Available [facility] [address] [place], [address], 02/23/2024 03:09:54 02/22/20 24 02/22/2024 CBC, PLATE LET, NO DIFFE RENTI AL hematocrit 45.7 % 34.0-4 6.6 Not Available [facility] [address] [place], [address], 02/23/2024 03:09:54 02/22/20 24 02/22/2024 CBC, PLATE LET, NO DIFFE RENTI AL MCV 86 fL 79-97 Not Available [facility] [address] [place], [address], 02/23/2024 03:09:54 02/22/20 24 02/22/2024 CBC, PLATE LET, NO DIFFE RENTI AL MCH 25.9 pg 26.6-3 3.0 below low normal Not Available [facility] [address] [place], [address], 02/23/2024 03:09:54 02/22/2002/22/2024 CBC, PLATE LET, NO DIFFE RENTI AL MCHC 30.2 g/dL 31.5-3 5.7 below low normal Not Available [facility] [address] [place], [address], 02/23/2024 03:09:54 02/22/20 24 02/22/2024 CBC, PLATE LET, NO DIFFE RENTI AL RDW 13.3 % 11.5-1 4.5 Not Available [facility] [address] [place], [address], 02/23/2024 03:09:54 02/22/20 24 02/22/2024 CBC, PLATE LET, NO DIFFE RENTI AL platelets 314 x10e3 /uL 150-45 0 Mean Plate let Volum e 10.8 fL 8.9-1 2.7 N Not Available [facility] [address] [place], [address], 02/23/2024 03:09:54 02/22/20 24 02/22/2024 CBC, PLATE LET, NO DIFFE RENTI AL NRBC 0 % 0-0 Not Available [facility] [address] [place], [address], 02/23/2024 03:09:54 02/22/20 24 02/23/2024 TSH RFX ON ABNOR MAL TO FREE T4 TSH 3.240 uIU/m L 0.450- 4.500 Not Available [facility] ([facility]) [address] [facility], [place], [address], 02/23/2024 16:11:50 02/22/20 24 02/23/2024 HEMOG LOBIN A1C hemoglobin A1C 5.8 % 4.8-5. 6 above high normal Predi abete s: 5.7 - 6.4 Diabe yamil: >6.4 Glyce artis contr ol for adult s with diabe yamil: <7.0 Not Available [facility] ([facility]) [address] [facility], [place], [address], 02/23/2024 16:11:51 02/22/20 24 02/23/2024 VITAM IN [...] Belinda owens [place]: The Natio nal [facility] Press . 2. Deedee raymundo MF, Ion chery [place], Kavitha off-F errar i DAMON, et al. Evalu ation , treat ment, and preve ntion of vitam in D defic iency : an Endoc rine Socie ty clini aneta pract ice guide line. JCEM. 2010; 96(7) :1911 -30. Not Available [facility] ([facility]) [address] [facility], [place], [address], 02/23/2024 16:11:52 02/26/20 24 02/27/2024 QUANT IFERO N-TB GOLD PLUS quantiferon incubation INCUBA TION PERFOR MED. Not Available [facility] ([facility]) [address] [facility], [place], [address], 03/01/2024 20:07:49 02/26/20 24 02/27/2024 QUANT IFERO [...] ol for the test. Not Available [facility] ([facility]) [address] [facility], [place], [address], 03/01/2024 20:07:49 02/26/20 24 03/01/2024 QUANT IFERO [...] y metho dolog y Not Available [facility] ([facility]) [address] [facility], [place], [address], 03/01/2024 20:07:49 02/26/20 24 03/01/2024 QUANT IFERO N-TB GOLD PLUS quantiferon TB1 Ag value 0.01 IU/mL Not Available [facility] ([facility]) [address] [facility], [place], [address], 03/01/2024 20:07:49 02/26/20 24 03/01/2024 QUANT IFERO N-TB GOLD PLUS quantiferon TB2 Ag value 0.04 IU/mL Not Available [facility] ([facility]) [address] [place], [address], 03/01/2024 20:07:49 02/26/20 24 03/01/2024 QUANT IFERO N-TB GOLD PLUS quantiferon nil value 0.02 IU/mL Not Available [facility] ([facility]) [address] [place], [address], 03/01/2024 20:07:49 02/26/20 24 03/01/2024 QUANT IFERO N-TB GOLD PLUS quantiferon mitogen value >10.00 IU/mL Not Available [facility] ([facility]) [address] [place], [address], 03/01/2024 20:07:49 07/13/19 25 07/12/2024 XR, chest , 2 view No observ ation record ed. [facility] [address], [place], [address], 07/13/2024 14:49:02 Result Notes None recorded. Problems Name Problem SNOMED Code Status Onset Date Resolution Date Notes Provider Name and Address Organization Details Recorded Time Morbid obesity 418889233 Active 024 Yumi Amezquita APN, CNC MILL OPERATOR-C Attn: Accounting ,[address] [facility], [place], [address] , [facility] - COUNTS INCLUDE 234 BEDS AT THE [facility] 10:19:44 Problem Notes None recorded. Procedures Surgical [...] Name and Address Organization Details Recorded Time 187447 amoxicill in medicatio n hives Not available Not available 02/22/2024 723 [facility] [place] - [facility] 10:03:52 Medications Name Sig Start Date Stop [...] and Address Organization Details Last Updated DateTime 167.64 cm 60.7 kg/m2 700459. 73 g 98 % 98 % 16 /min 98.4 [degF] 88 /min 140 mm[Hg] 94 mm[Hg] [place] [facility] 10:13:10 Social History Question Answer Notes LastModified by Organizat ion Details LastModified Time Tobacco Smoking Status Never Smoker [facility] [place] [facility] 02/22/2024 10:07:04 Are You Blind Or Do You Have [...] No Information not available 02/22/2024 Are You Deaf Or Do You Have Serious Difficulty Hearing? No Information not available 02/22/2024 What Type Of Diet Are You Following? REGULAR Information not available 02/22/2024 Are There Any [...] Information no t available 02/22/2024 Do You Use Sunscreen Routinely? Yes Information not available 02/22/2024 Has Tobacco Cessation Counseling Been Provided? Yes Information not available 02/22/2024 On What Date Was Tobacco Cessation Counseling Provided? 02/22/2024 Information not available 02/22/2024 Sex: Female Functional Status Question Answer Note LastModified by Organizat ion Details LastModified Time Do you use any illicit or recreational drugs? No Information not available 02/22/2024 Do you or have you ever used any other forms of tobacco or nicotine? No Information not available 02/22/2024 What is your level of alcohol consumption? Occasional Information not available 02/22/2024 Are you currently employed? Yes Information not available 02/22/2024 Are you able to care for yourself? Yes Information not available 02/22/2024 What is your occupation? [employer] Information not available 02/22/2024 What is your exercise level? Occasional Information not available 02/22/2024 Mental Status Question Answer Note LastModified by Organization D etails LastModified Time Do you feel stressed (tense, restless, nervous, or anxious, or unable to sleep at night)? [id number] Information not available 02/22/2024 Family History Relationship Description Onset Age of [...] Atrial Fibrillation N High Blood Pressure N Depression N COPD N Blood Clots N Anxiety Disorder N Muscle, Joint, or Bone Problems N Arthritis N Acid Reflux (GERD) N Cancer N Stroke N High Cholesterol N Liver Disease N Schizophrenia N Headaches N Thyroid Problems N Kidney or Bladder Problems N GI Problems N Have you had a mammogram in the last yea r? N Eating Disorder N Skin Problems N Anemia N Heart Attack (CT) N Diabetes N Seizures/Epilepsy N Have you had a colonoscopy in the last 1 0 years? N Asthma Y Allergies N Have you had a PSA blood test in the las t year? N Substance Abuse N Hepatitis N Heart Failure N Osteoporosis N Gynecological History Statement/Question Response Flow Moderate Date of LMP 01/08/2024 Menses Monthly N Age at Menarche 12 Current Control Method None LMP Approximate Obstetrics History GPAL:G 0 P 0 0 0 0 Immunizations Vaccine Type Date Status Note Provider Nam e and Address Organization Details Recorded Time Hib, unspecified formulation 4 completed Yumi Amezquita, BURR GRINDER, CNC MILL OPERATOR-C Attn: Accounting,[address] [facility], [place], [place], [address] [place] [address], [facility] 02/22/2024 10:15:24 Hib, unspecified formulation 7 completed Yumi Amezquita, BURR GRINDER, CNC MILL OPERATOR-C Attn: Accounting,[address] [facility], [place], [address] [place] [address], [facility] 02/22/2024 10:15:24 Hib-Hep B 2 completed Yumi Amezquita, BURR GRINDER, CNC MILL OPERATOR-C Attn: Accounting,[address] [facility], [place], [address] [place] [address], [facility] 02/22/2024 10:15:24 Hib-Hep B 3 completed Yumi Amezquita, BURR GRINDER, CNC MILL OPERATOR-C Attn: Accounting,[address] [facility], [place], [address] [place] [address], [facility] 02/22/2024 10:15:24 Hib-Hep B 2 completed Yumi Bia, BURR GRINDER, CNC MILL OPERATOR-C Attn: Accounting,[address] [facility], [place], [place], [address] [place] [address] SI 02/22/2024 10:15:24 IPV 6 completed Yumi Bia, BURR GRINDER, CNC MILL OPERATOR-C Attn: Accounting,[address] [place], [place], [address] [place] [address], [facility] - [facility] 02/22/2024 10:15:24 IPV 2 completed Yumi Amezquita, BURR GRINDER, CNC MILL OPERATOR-C Attn: Accounting,[address] [place], [place], [address] [place] [address], [facility] - [facility] 02/22/2024 10:15:24 IPV 3 completed Yumi Amezquita, BURR GRINDER, CNC MILL OPERATOR-C Attn: Accounting,[address] [place], [place], [address] [place] [address] - [facility] 02/22/2024 10:15:24 IPV 2 completed Yumi Amezquita, BURR GRINDER, CNC MILL OPERATOR-C Attn: Accounting,[address] [facility], [place], [address] [place] [address], [place] - [facility] 02/22/2024 10:15:24 MMR 3 completed Yumi Amezquita, BURR GRINDER, CNC MILL OPERATOR-C Attn: Accounting,[address] [facility], [place], [address] [place] [address], [place] - [facility] 02/22/2024 10:15:24 MMR 6 completed Yumi Amezquita, BURR GRINDER, CNC MILL OPERATOR-C Attn: Accounting,[address] [facility], [place], [address] [place] [address], [place] - [facility] 02/22/2024 10:15:24 COVID-19, mRNA, LNP-S, PF, 30 mcg/0.3 mL dose 1 completed Yumi Amezquita, BURR GRINDER, CNC MILL OPERATOR-C Attn: Accounting,[address] [facility], [place], [address] [place] [address], [place] [facility] 02/22/2024 10:15:24 COVID-19, mRNA, LNP-S, PF, 30 mcg/0.3 mL dose 1 completed Yumi Amezquita, BURR GRINDER, CNC MILL OPERATOR-C Attn: Accounting,[address] [facility], [place], [address] [place] [address], [place] [facility] 02/22/2024 10:15:24 pneumococcal conjugate PCV 7 2 completed Yumi Amezquita, BURR GRINDER, CNC MILL OPERATOR-C Attn: Accounting,[address] [facility], [place], [address] [place] [address], [place] [facility] 02/22/2024 10:15:24 pneumococcal conjugate PCV 7 3 completed Yumi Amezquita, BURR GRINDER, CNC MILL OPERATOR-C Attn: Accounting,[address] [facility], [place], [address] [place] [address], [place] [facility] 02/22/2024 10:15:24 pneumococcal conjugate PCV 7 2 completed Yumi Amezquita, BURR GRINDER, CNC MILL OPERATOR-C Attn: Accounting,[address] [facility], [place], [address] [place] [address], [facility] - [facility] 02/22/2024 10:15:24 pneumococcal conjugate PCV 7 2 completed Yumi Amezquita, BURR GRINDER, CNC MILL OPERATOR-C Attn: Accounting,[address] [facility], [place], [address] [place] [address], [facility] - [facility] 02/22/2024 10:15:24 pneumococcal polysaccharide PPV23 7 completed Yumi Amezquita, BURR GRINDER, CNC MILL OPERATOR-C Attn: Accounting,[address] [facility], [place], [address] [place] [address], [facility] - [facility] 02/22/2024 10:15:24 influenza, unspecified formulation 7 completed Yumi Amezquita, BURR GRINDER, CNC MILL OPERATOR-C Attn: Accounting,[address] [facility], [place], [address] [place] [address], [facility] - [facility] 02/22/2024 10:15:24 influenza, unspecified formulation 8 completed Yumi Bia, BURR GRINDER, CNC MILL OPERATOR-C Attn: Accounting,[address] [facility], [place], [address] [place] [address], [facility] - [facility] 02/22/2024 10:15:24 Tdap 3 completed Yumi Amezquita, BURR GRINDER, CNC MILL OPERATOR-C Attn: Accounting,[address] [facility], [place], [address] [place] [address], [place] [facility] 02/22/2024 10:15:24 varicella 3 completed Yumi Bia, BURR GRINDER, CNC MILL OPERATOR-C Attn: Accounting,[address] [facility], [place], [address] [place] [address], [place] [facility] 02/22/2024 10:15:24 varicella 8 completed Yumi Amezquita, BURR GRINDER, CNC MILL OPERATOR-C Attn: Accounting,[address] [facility], [place], [address] [place] [address], [place] [facility] 02/22/2024 10:15:24 Hep B, unspecified formulation 2 completed Yumi Amzequita, BURR GRINDER, CNC MILL OPERATOR-C Attn: Accounting,[address] [facility], [place], [address] [place] [address], [facility] 02/22/2024 10:15:24 Influenza, split virus, trivalent, preservative 1 completed Yumi Amezquita, BURR GRINDER, CNC MILL OPERATOR-C Attn: Accounting,[address] [facility], [place], [address] [place] [address], [facility] 02/22/2024 10:15:24 Influenza, split virus, trivalent, PF 2 completed Yumi Amezquita, BURR GRINDER, CNC MILL OPERATOR-C Attn: Accounting,[address] [facility], [place], [address] [place] [address], [facility] 02/22/2024 10:15:24 influenza, split (incl. purified surface antigen) 0 completed Yumi Amezquita, BURR GRINDER, CNC MILL OPERATOR-C Attn: Accounting,[address] [facility], [place], [address] [place] [address], [facility] 02/22/2024 10:15:24 influenza, split (incl. purified surface antigen) 9 completed Yumi Amezquita, BURR GRINDER, CNC MILL OPERATOR-C Attn: Accounting,[address] [facility], [place], [address] [place] [address], [facility] 02/22/2024 10:15:24 Hep A, pediatric, unspecified formulation 8 completed Yumi Bia, BURR GRINDER, CNC MILL OPERATOR-C Attn: Accounting,[address] [facility], [place], [address] [place] [address], [facility] - SI 02/22/2024 10:15:24 meningococcal MCV4P 9 completed Yumi Bia, BURR GRINDER, CNC MILL OPERATOR-C Attn: Accounting,[address] [facility], [place], [address] [place] [address], [facility] - [facility] 02/22/2024 10:15:24 meningococcal MCV4P 3 completed Yumi Amezquita, BURR GRINDER, CNC MILL OPERATOR-C Attn: Accounting,[address] [facility], [place], [address] [place] [address], [facility] 02/22/2024 10:15:24 DTaP 6 completed Yumi Amezquita, BURR GRINDER, CNC MILL OPERATOR-C Attn: Accounting,[address] [place], [place], [address] [place] [address], [facility] 02/22/2024 10:15:24 DTaP 2 completed Yumi Amezquita, BURR GRINDER, CNC MILL OPERATOR-C Attn: Accounting,[address] [facility], [place], [address] [place] [address], [facility] 02/22/2024 10:15:24 DTaP 3 completed Yumi Amezquita, BURR GRINDER, CNC MILL OPERATOR-C Attn: Accounting,[address] [facility], [place], [address] [place] [address], [facility] 02/22/2024 10:15:24 DTaP 2 completed Yumi Amezquita, BURR GRINDER, CNC MILL OPERATOR-C Attn: Accounting,[address] [place], [place], [address] [place] [address], [facility] 02/22/2024 10:15:24 DTaP 2 completed Yumi Amezquita, BURR GRINDER, CNC MILL OPERATOR-C Attn: Accounting,[address] [place], [place], [address] [place] [address], [facility] 02/22/2024 10:15:24 Influenza, split virus, quadrivalent, PF 5 completed Yumi Amezquita, BURR GRINDER, CNC MILL OPERATOR-C Attn: Accounting,[address] [place], [place], [address] [place] [address], [facility] 02/22/2024 10:15:24 Influenza, split virus, quadrivalent, PF 3 completed Yumi Amezquita, [employer], [employer]-C Attn: Accounting,[address] [place], [place], [address] [place] [address], [facility] 02/22/2024 10:15:24 Influenza, split virus, quadrivalent, PF 4 completed Yumi Amezquita, [employer], [employer]-C Attn: Accounting,[address] [place], [place], [address] [place] [address], [facility] 02/22/2024 10:15:24 Hep A, unspecified formulation 9 completed Yumi Amezquita APN, CNC MILL OPERATOR-C Attn: Accounting,[address], [place], [address], [facility] 02/22/2024 10:15:24 Influenza, split virus, trivalent, preservative 4 completed Angelica Louis, RMA null, [place] - [facility] 02/22/2024 10:41:21 Tdap 4 completed Angelica Louis, RMA null, [place] - [facility] 02/22/2024 10:41:22 Past Encounters Encounter ID Performer Location Encounter Start Date Encounter Closed Date Diagnosis/Indication Diagnosis SNOMED-CT Code Diagnosis ICD10 Code Diagnosis Note [id number] MD Red Aguilar (Adult Med) [address] [place] [address] 02/22/2024 09:51:28 02/24/2024 16:36:02 Adult health examination 253490276 Z00.01 Encouraged routine SAFETY CONSULTANT, vision, dental exams, well balanced diet. Administra tion of influenza vaccine 68430705 Z23 Tuberculos is screening 778217035 Z11.7 needed for day care worker form Morbid obesity 494992772 E66.01 weight loss advised Elevated blood-pressure reading without diagnosis of hypertension 748512525 R03.0 BP in pre-hypert ensive range, dwp risk, reducing salt and increasing exercise Administra tion of diphtheria, pertussis, and tetanus vaccine 307243815 Z23 History of asthma 290145 007 Z87.09 has not had issues since [...] [place] Member ID Guarantor Name 02/22/2024 1 [facility] - DOS ON OR AFTER 20 (MEDICAID REPLACEMENT - HMO) Merlyn Cornejo [id number] Merlyn Cornejo Notes Date Note Type Note Provider Name and Address Organization Details Recorded Time 02/22/2024 text/html last dr was peds in 2019Needs work physical and tb test Yumi Amezquita APN, CNC MILL OPERATOR-C Attn: Accounting,[address] [facility], [place], [address], [facility] 02/22/2024 10:31:33 OBGyn Episode No OBEpisode recorded.
--- NOTE | 2024-08-08 12:22 | ED.URI ---
HPI - URI/Sore Throat General Chief Complaint: Upper Respiratory Infection Stated Complaint: Cough Time Seen by Provider: 08/08/24 12:10 Source: patient and RN notes reviewed Mode of arrival: ambulatory Limitations: no limitations History of Present Illness HPI Narrative: 24-year-old female presents Express Care complaining of cough and congestion for 12 weeks. Patient was seen approximately 1 month ago was given antibiotics and steroids with minimal relief. Patient reports having mucopurulent sputum and nasal discharge, decrease sense of smell, productive cough, and sinus congestion. Patient is not using also [id number] out with her symptoms. Patient says her symptoms are worse when she lays flat. Patient denies any chest pain shortness of breath. She denies any fevers, body aches, chills Related Data Allergies Allergy/AdvReac Type Severity Reaction Status Date / Time amoxicillin Allergy Intermediate Hives Verified 08/08/24 11:47 Review of Systems Review of Systems: CONSTITUTIONAL: Denies fever, chills, or sweats. EYES: Denies visual changes, redness, or discharge. ENT: Denies rhinorrhea, sore throat, or otalgia. Positive for sinus pressure and congestion. CARDIOVASCULAR: Denies chest pain, palpitations, or edema. RESPIRATORY: Positive for cough. Negative for dyspnea. GASTROINTESTINAL: Denies abdominal pain, nausea, vomiting, or diarrhea. GENITOURINARY: Denies dysuria or hematuria. SKIN: Denies rash or itching. MUSCULOSKELETAL: Denies back pain, joint pain, or myalgia. NEUROLOGIC: Denies headache, numbness, or weakness. PSYCHIATRIC: Denies anxiety or depression. All other systems reviewed are negative, except as documented in HPI. [facility] Past Medical History Medical History Asthma Surgical History Surgical History No pertinent past surgical history Family History Family History Mother Pneumonia Social History Social History Substance use: never Living arrangements: with family Gender identity (if verbalized by the patient): Female Spiritual care concerns: No Comments At the time of my signature, I reviewed and agree with the nursing past medical, surgical, social, and family history. There is no relevant family history pertinent to the patient complaint. Exam Narrative: GENERAL: This is a well-nourished, well-developed adult, in no apparent distress. They are non ill-appearing, nontoxic appearing. HEAD: normocephalic, atraumatic. EYES: Sclera clear/white. Conjunctiva normal. Vision is grossly intact. Extraocular movements intact EARS: External ears normal, auditory canals clear and without drainage, TMs normal without perforation. Hearing grossly intact. NOSE: External nose normal with no obvious nasal discharge, nasal turbinates erythematous, no rhinorrhea. Mild tenderness to palpation to maxillary sinuses. THROAT: Mucous membranes moist, posterior pharynx clear, without erythema or swelling. Uvula midline. Postnasal drip present. NECK: Neck supple, non-tender without lymphadenopathy, masses or thyromegaly. CARDIOVASCULAR: Regular rate and rhythm without murmurs, gallops, or rubs. RESPIRATORY: Clear to auscultation. Breath sounds equal bilaterally. No wheezes, rales, or rhonchi. GASTROINTESTINAL: Abdomen soft, non-tender, nondistended. Bowel sounds are active. No hepato-splenomegaly, or palpable masses. No guarding. SKIN: warm, Dry, intact with no suspicious lesions or rash, good texture and turgor. NEURO: awake, alert, and oriented to person, place and time. There were no obvious focal neurologic abnormalities. EXTREMITIES: No joint tenderness, effusion, or edema noted. BACK: Nontender without deformity. No CVA tenderness. Course Course Emergency Course: Portions of this record may have been created with voice recognition software Level of Care: Express Care Visit Vital Signs Vital signs: Vital Signs Temperature 98.7 F 08/08/24 11:40 Pulse Rate 84 08/08/24 11:40 Respiratory Rate 16 08/08/24 11:40 Blood Pressure 155/92 H 08/08/24 11:40 Pulse Oximetry 98 08/08/24 11:40 Oxygen Delivery Room Air 08/08/24 11:40 Temperature 98.7 F 08/08/24 11:40 Pulse Rate 84 08/08/24 11:40 Respiratory Rate 16 08/08/24 11:40 Blood Pressure 155/92 H 08/08/24 11:40 Pulse Oximetry 98 08/08/24 11:40 Oxygen Delivery Room Air 08/08/24 11:40 Reviewed MDM - URI/Sore Throat MDM Narrative Medical decision making narrative: Given patient's length of symptoms and refractory to treatment it is likely patient has developed a chronic sinusitis. Will treat him with doxycycline for 3 weeks recommend follow-up ENT for further evaluation and management of her symptoms. Also recommend Flonase to use daily. Discussed physical exam findings. Advised supportive measures and signs/symptoms to go to the ER. Pt is appropriate for outpt treatment and f/u. Differential Diagnosis Differential diagnosis: Likely sinusitis (Chronic), bronchitis and other (Asthma) Critical Care Time Critical Care Time Critical Care Time: No Discharge Plan Discharge Clinical Impression: Sinusitis Qualifiers: Sinusitis location: unspecified location Chronicity: chronic Qualified Code(s): J32.9 - Chronic sinusitis, unspecified Patient Disposition: Home Condition: Stable Instructions: Antibiotic Form, Sinusitis (ED) Additional Instructions: Take the antibiotics as directed and complete the course even if you start to feel better. Please wear sunscreen for going to be outside while taking doxycycline. You may use a Neti pot saline rinse 3 times a day with lukewarm distilled water Continue to take Tylenol or Motrin for pain. Use a humidifier or vaporizer at night. Drink plenty of water. 8-10 glasses per day. Use flonase 2 times per day for 5 days then as needed Take mucinex 2 times per day and be sure to take with 8oz of water. Follow up with Primary provider in 3-5 days Follow-up with ENT for further evaluation management of your symptoms. Please go to the ER if he develops any difficulty breathing, worsening symptoms, or any other concerns Patient Language: Khmer Prescriptions: New doxycycline monohydrate 100 mg capsule 100 mg PO BID 21 Days Qty: 42 0RF Follow-up/Referrals: Gideon Diop MD [Physician] - Amezquita,Yumi Leon APN [Primary Care Provider] - Time of Disposition: 12:14
== END 2024-08-08 12:23 | disposition home or self-care (01) ==
PROVIDERS: PCP Nurse Practitioner Family
DX: J32.9 Chronic sinusitis, unspecified (principal); J45.909 Unspecified asthma, uncomplicated
CPT/HCPCS: 99213; G0463